=== PATIENT | female | born 1965 | race African-American/Black ===

== ENCOUNTER 2016-04-30 10:59 | Emergency (ER) | payer SELFPAY ==
[~2016-04-30] VITALS: Ht 162.6 cm; Wt 109.0 kg
[~2016-04-30 10:59] MED LIST: AMLO10TA2 PO; CLON0.1T PO; GABA800T PO; HYDR-3535 PO; HYDR25TA5 PO; IBUP-232 PO; METF500T PO; ORPH100T99 PO; ROBA500T PO
[2016-04-30 11:06] VITALS: BP 156/98; PULSE 104; RESP 16; TEMP 100.2; O2SAT 97
[2016-04-30] MEDS ORDERED: SIMV40TA PO (11:20)
[2016-04-30] MEDS ORDERED: PERC5TAB12 PO (11:20)
--- NOTE | 2016-04-30 11:25 | PD ---
HPI Chief Complaint: ENT Complaint Time Seen by Provider: 11:20 Travel History International Travel<30 days: No Contact w/Intl Traveler<30days: No Traveled to known affect area: No History of Present Illness HPI 51 year-old female presents to the emergency room for evaluation of sore throat , chills, bodyaches, nonproductive cough, and congestion for the past week. Patient states it started off as laryngitis and then her symptoms progressed. She took Mucinex last night without any relief in symptoms. Sore throat is her biggest complaint. Worse with speaking and swallowing. States it feels like her throat is swollen. 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 She has not had a flu shot this year. PFSH Past Medical History Hx Anticoagulant Therapy: No Arthritis: Yes Asthma: Yes Cardiovascular Problems: Yes (HTN) High Cholesterol: Yes Diabetes: Yes Patient Takes Glucophage: Yes Diminished Hearing: No GERD: Yes Glaucoma: Yes Genitourinary: Yes (COLLAPSED BLADDER) Herniated Disk: Yes (TWO LOWER BACK, ONE IN NECK) Hypertension: Yes Neurologic: No Respiratory: Yes (ASTHMA) Immunizations Current: Yes Tetanus Vaccination: < 5 Years Influenza Vaccination: No ?: Not LMP: 02/07/16 : 3 Para: 2 Miscarriage: 1 Ovarian Cysts: Yes Dilation and Curettage (D&C): Yes Past Surgical History Section: Yes (X2) Other Surgery: Yes (SPINAL TAP/RIGHT BREAST BIOPSY PIN MARKER IN PLACE scalp lesion excision) Social History Alcohol Use: No Tobacco Use: No Substance Use: No Allergies-Medications (Allergen,Severity, Reaction): Coded Allergies: Labetalol (Verified Allergy, Severe, BREATHING/THROAT SWELLS, 04/30/16) Reported Meds & Prescriptions Reported Meds & Active Scripts Active Ibuprofen 600 Mg Tab 600 Mg PO Q6H PRN Reported Simvastatin 40 Mg Tab 40 Mg PO HS Percocet (Oxycodone-Acetaminophen) 5-325 mg Tab 1 Tab PO Q6H PRN Clonidine (Clonidine HCl) 0.1 Mg Tab 0.1 Mg PO DAILY Hydrochlorothiazide 25 Mg Tab 25 Mg PO DAILY Amlodipine (Amlodipine Besylate) 10 Mg Tab 10 Mg PO DAILY Gabapentin 800 Mg Tab 800 Mg PO TID Metformin (Metformin HCl) 500 Mg Tab 500 Mg PO DAILY With a meal Review of Systems Except as stated in HPI: all other systems reviewed are Neg Physical Exam Narrative GENERAL: Well-nourished, well-developed female in no acute distress. Afebrile. Ambulatory. SKIN: Warm and dry. HEAD: Normocephalic. EYES: No scleral icterus. No injection or drainage. ENT: Mucosa pink and moist. Moderate erythema, edema, and exudates. No uvular edema. No uvular, palatal, or tonsillar deviation. Airway patent. Nasal turbinates appear normal without nasal blood, purulent drainage or septal hematoma. EARS: Bilateral pinnae and external canals appear within normal limits. Bilateral tympanic membranes without erythema, dullness or perforation. NECK: Supple, trachea midline. No JVD or lymphadenopathy. CARDIOVASCULAR: Regular rate and rhythm without murmurs, gallops, or rubs. RESPIRATORY: Breath sounds equal bilaterally. No accessory muscle use. No crackles, rales, wheezes, or rhonchi. Data Data Last Documented VS Vital Signs Date Time Temp Pulse Resp B/P Pulse Ox O2 Delivery O2 Flow Rate FiO2 04/30/16 11:20 20 04/30/16 11:06 100.2 104 156/98 97 Orders Group A Rapid Strep Screen (04/30/16 11:19) Influenzae A/B Antigen (04/30/16 11:19) Strep Culture (Group A) (04/30/16 11:20) MDM Medical Decision Making Medical Screen Exam Complete: Yes Emergency Medical Condition: Yes Medical Record Reviewed: Yes Differential Diagnosis Influenza versus streptococcal pharyngitis versus upper respiratory infection versus bronchitis Narrative Course 51-year-old female presents to the emergency room for evaluation of cough and flu symptoms for the past week. Patient is well-appearing. Temperature is mildly elevated at 100.2. Physical exam reveals moderate erythema, edema, and exudates on the pharynx. Lungs sounds clear and equal bilaterally. No purulent drainage in the nares. Rapid strep and flu are negative. Patient likely has viral upper respiratory infection. Discharged with instructions for [id number] treatments and told to follow up with primary care physician and return to the emergency room for worsening symptoms. She understands and agrees to plan. Of note, she also reports running out of her metformin last week. Patient given a one-time courtesy refill but told to follow up with the primary care physician for long-term management. She understands and agrees to plan. Diagnosis Primary Impression: Upper respiratory infection Qualified Code: J00 - Acute nasopharyngitis Referrals: Primary Care Physician Patient Instructions: General Instructions, Upper Respiratory Infection (ED) Additional Instructions: Rest and drink plenty of fluids. [id number] Chloraseptic spray and salt water washes for sore throat, Continue [id number] medications for symptoms. Take ibuprofen with food as directed, as needed for pain. You will get one-time courtesy refill of metformin. Follow-up with a primary care physician for long-term management of your chronic conditions. Return to the emergency room for worsening symptoms. Disposition: 01 DISCHARGE HOME Condition: Stable Jeni Velazquez Apr 30, 2016 11:25
[2016-04-30] MEDS ORDERED: METF500T PO (11:50)
== END 2016-04-30 11:59 | disposition home or self-care (01) ==
LOC: PHEFT 10:59
DX: J06.9 Acute upper respiratory infection, unspecified (principal); I10 Essential (primary) hypertension; E78.00 Pure hypercholesterolemia, unspecified; E11.9 Type 2 diabetes mellitus without complications; Z79.4 Long term (current) use of insulin
CPT/HCPCS: 87081; 87804; 87880; 99283

== ENCOUNTER 2016-05-31 11:10 | Emergency (ER) | payer SELFPAY ==
[~2016-05-31] VITALS: Ht 170.2 cm; Wt 111.0 kg
[~2016-05-31 11:10] MED LIST changes: -HYDR-3535 PO; -ORPH100T99 PO; +PERC5TAB12 PO; -ROBA500T PO; +SIMV40TA PO
[2016-05-31 11:23] VITALS: BP 149/79; PULSE 84; RESP 16; TEMP 98.8; O2SAT 100
[2016-05-31 11:36] LABS: BLOOD, URINE NEG (NEG); GLUCOSE,URINE NEG (NEG); KETONE, URINE NEG (NEG); NITRITE,URINE NEG (NEG)
[2016-05-31 11:38] LABS: METHOD OF COLLECTION CLEAN CATCH; URINE COLOR YELLOW (YELLW/STRAW)
[2016-05-31 11:44] LABS: BACTERIA, URINE MOD /hpf; COMMENT (UR) CULTURE INDICATED; CULTURE IF INDICATED CULTURE INDICATED; SQUAMOUS EPITHELIAL CELL URINE 0-5 /hpf (0-5); WBC, URINE 0-2 /hpf (0-5)
[2016-05-31] MEDS ORDERED: OXYB5TAB10 PO (11:46)
[2016-05-31] MEDS ORDERED: SODIUM CHLOR 0.9% 1000 ML INJ 1,000 ML IV ONE (12:00)
[2016-05-31] MEDS ORDERED: KETOROLAC TROMETHAMINE 30 MG/ML (IVP) VIAL IV PUSH ONE (12:00)
[2016-05-31 12:06] LABS: BASOPHIL # 0.2 TH/MM3 (0-0.2); BASOPHIL % 3.6 % (0.0-2.0); EOSINOPHIL # 0.1 TH/MM3 (0-0.4); EOSINOPHIL % 1.9 % (0.0-4.0); HEMATOCRIT 37.9 % (35.0-46.0); HEMO FLAGS DIFF FINAL; LYMPH % 28.9 % (9.0-44.0); LYMPHOCYTE # 1.5 TH/MM3 (1.0-4.8); MEAN CORPUSCULAR HGB CONC 32.9 % (32.0-36.0); MONO % 6.6 % (0.0-8.0); PLATELET COUNT 321 TH/MM3 (150-450); RED BLOOD COUNT 4.46 MIL/MM3 (4.00-5.30); RED CELL DISTRIBUTION WIDTH 13.8 % (11.6-17.2); WHITE BLOOD COUNT 5.1 TH/MM3 (4.0-11.0)
--- NOTE | 2016-05-31 12:08 | PD ---
HPI Chief Complaint: Complaint Time Seen by Provider: 11:40 Travel History International Travel<30 days: No Contact w/Intl Traveler<30days: No Traveled to known affect area: No History of Present Illness HPI Patient is a 51-year-old female who comes in complaining of urinary frequency urgency as well as right flank pain. She says this is going on for the past 2 weeks. She says she feels pressure in her bladder when she urinates, but denies burning with urination. She says she has had chills, and hot flashes but has not had any fevers. She says she has had her menstrual period for 2 weeks now. She reports being out of her medications, both her blood pressure as well as her pain medications. She says she missed 2 appointments with her doctors, but has health insurance now and will make those appointments. She denies any chest pain or shortness of breath. She requests refills for her pain medication. PFSH Past Medical History Hx Anticoagulant Therapy: No Arthritis: Yes Asthma: Yes Cardiovascular Problems: Yes (HTN) High Cholesterol: Yes Diabetes: Yes Patient Takes Glucophage: Yes Diminished Hearing: No GERD: Yes Glaucoma: Yes Genitourinary: Yes (COLLAPSED BLADDER) Herniated Disk: Yes (TWO LOWER BACK, ONE IN NECK) Hypertension: Yes Neurologic: No Respiratory: Yes (ASTHMA) Immunizations Current: Yes ?: Not : 3 Para: 2 Miscarriage: 1 Ovarian Cysts: Yes Dilation and Curettage (D&C): Yes Past Surgical History Section: Yes (X2) Other Surgery: Yes (SPINAL TAP/RIGHT BREAST BIOPSY PIN MARKER IN PLACE scalp lesion excision) Social History Alcohol Use: No Tobacco Use: No Substance Use: No Allergies-Medications (Allergen,Severity, Reaction): Coded Allergies: Labetalol (Verified Allergy, Severe, BREATHING/THROAT SWELLS, 05/31/16) Reported Meds & Prescriptions Reported Meds & Active Scripts Active Ibuprofen 600 Mg Tab 600 Mg PO Q6H PRN Reported Ditropan (Oxybutynin Chloride) 5 Mg Tab 5 Mg PO Q12HR Simvastatin 40 Mg Tab 40 Mg PO HS Percocet (Oxycodone-Acetaminophen) 5-325 mg Tab 1 Tab PO Q6H PRN Clonidine (Clonidine HCl) 0.1 Mg Tab 0.1 Mg PO DAILY Hydrochlorothiazide 25 Mg Tab 25 Mg PO DAILY Amlodipine (Amlodipine Besylate) 10 Mg Tab 10 Mg PO DAILY Gabapentin 800 Mg Tab 800 Mg PO TID Metformin (Metformin HCl) 500 Mg Tab 500 Mg PO DAILY With a meal Review of Systems Except as stated in HPI: all other systems reviewed are Neg General / Constitutional: Positive: Chills, No: Fever HENT: No: Headaches, Lightheadedness Cardiovascular: No: Chest Pain or Discomfort Respiratory: No: Shortness of Breath Gastrointestinal: Positive: Nausea, No: Vomiting, Abdominal Pain Genitourinary: Positive: Urgency, Frequency, Flank Pain Skin: No Rash, No Change in Pigmentation Neurologic: No: Weakness, Dizziness Physical Exam Narrative GENERAL: Awake and alert, in no acute distress. SKIN: Warm and dry. HEAD: Atraumatic. Normocephalic. EYES: Pupils equal and round. No scleral icterus. ENT: Mucous membranes pink and moist. NECK: Trachea midline. No JVD. CARDIOVASCULAR: Regular rate and rhythm. No murmur appreciated. RESPIRATORY: No accessory muscle use. Clear to auscultation. Breath sounds equal bilaterally. GASTROINTESTINAL: Abdomen soft, non-tender, nondistended. Mild right CVA tenderness. MUSCULOSKELETAL: No obvious deformities. No clubbing. No cyanosis. No edema. NEUROLOGICAL: Awake and alert. No obvious cranial nerve deficits. Motor grossly within normal limits. Normal speech. PSYCHIATRIC: Appropriate mood and affect; insight and judgment normal. Data Data Last Documented VS Vital Signs Date Time Temp Pulse Resp B/P Pulse Ox O2 Delivery O2 Flow Rate FiO2 05/31/16 11:23 98.8 84 16 149/79 100 Orders Urinalysis - C+S If Indicated (05/31/16 11:13) Urine Culture (05/31/16 11:25) Complete Blood Count With Diff (05/31/16 11:48) Basic Metabolic Panel (Bmp) (05/31/16 11:48) Ed Urine Pregnancytest Poc (05/31/16 11:48) Sodium Chlor 0.9% 1000 Ml Inj (Ns 1000 M (05/31/16 12:00) Ketorolac Inj (Toradol Inj) (05/31/16 12:00) Ct Abd/Pel W/O Iv Contrast (05/31/16 ) Labs Laboratory Tests Test 05/31/16 05/31/16 11:25 11:55 Urine Collection Type CLEAN CATCH Urine Color YELLOW Urine Turbidity CLEAR Urine pH 7.0 Urine Specific [place] 1.021 Urine Protein TRACE mg/dL Urine Glucose (UA) NEG mg/dL Urine Ketones NEG mg/dL Urine Occult Blood NEG Urine Nitrite NEG Urine Bilirubin NEG Urine Leukocyte Esterase NEG Urine WBC 0-2 /hpf Urine Squamous Epithelial 0-5 /hpf Cells Urine Amorphous Sediment FEW Urine Bacteria MOD /hpf Microscopic Urinalysis Comment CULTURE INDICATED Urine Collection Time 1125 White Blood Count 5.1 TH/MM3 Red Blood Count 4.46 MIL/MM3 Hemoglobin 12.5 GM/DL Hematocrit 37.9 % Mean Corpuscular Volume 85.0 FL Mean Corpuscular Hemoglobin 28.0 PG Mean Corpuscular Hemoglobin 32.9 % Concent Red Cell Distribution Width 13.8 % Platelet Count 321 TH/MM3 Mean Platelet Volume 7.6 FL Neutrophils (%) (Auto) 59.0 % Lymphocytes (%) (Auto) 28.9 % Monocytes (%) (Auto) 6.6 % Eosinophils (%) (Auto) 1.9 % Basophils (%) (Auto) 3.6 % Neutrophils # (Auto) 3.0 TH/MM3 Lymphocytes # (Auto) 1.5 TH/MM3 Monocytes # (Auto) 0.3 TH/MM3 Eosinophils # (Auto) 0.1 TH/MM3 Basophils # (Auto) 0.2 TH/MM3 CBC Comment DIFF FINAL Differential Comment Sodium Level 138 MEQ/L Potassium Level 4.6 MEQ/L Chloride Level 102 MEQ/L Carbon Dioxide Level 29.5 MEQ/L Anion Gap 7 MEQ/L Blood Urea Nitrogen 10 MG/DL Creatinine 1.20 MG/DL Estimat Glomerular Filtration 57 ML/MIN Rate Random Glucose 89 MG/DL Calcium Level 9.0 MG/DL [facility] Medical Decision Making Medical Screen Exam Complete: Yes Emergency Medical Condition: Yes Medical Record Reviewed: Yes Differential Diagnosis UTI versus pyelonephritis versus renal stone Narrative Course Patient is a 51-year-old female comes in complaining of urinary urgency and frequency as well as mild right flank pain. Exam shows very mild right CVA tenderness. IV established, labs sent. Labs show creatinine of 1.2 this is only mildly elevated from her baseline of 1.1. Urine is positive for bacteria. CT abdomen and pelvis performed shows no renal stones or kidney abnormalities. There is a small ovarian cyst. Patient knows she has ovarian cysts. Patient given IV fluids, Toradol. She reports feeling better. She is requesting refills of her medications. She says she can see her doctor hopefully next week. I told her I would give her prescriptions for 2 weeks of her blood pressure medicine. I also offered muscle relaxers for her chronic back pain. She will be given a prescription for Macrobid for her bacteriuria. Patient advised follow-up with her doctors. Advised to return to the ED as needed for any worsening symptoms. Patient is comfortable discharge at this time. Diagnosis Primary Impression: UTI (urinary tract infection) Qualified Code: N30.00 - Acute cystitis without hematuria Patient Instructions: General Instructions, Hypertension (ED), Urinary Tract Infection in Women (ED) Additional Instructions: Follow up with your doctors. Avoid taking Ibuprofen if possible as it can affect your kidneys. You can take Tylenol for pain. Take the muscle relaxants as needed for your back pain. Make sure to take all of your antibiotics. Return to the ED as needed for any worsening symptoms. Scripts Cyclobenzaprine (Flexeril)10 Mg Tab10 Mg PO TID #20 TAB Ref 0 Prov:Zo Chang MD 05/31/16 Nitrofurantoin Monohydrate Macrocrystals (Macrobid)100 Mg [id number] Mg PO BID 5 Days Ref 0 Prov:Zo Chang MD 05/31/16 Amlodipine 10 Mg Tab10 Mg PO DAILY 14 Days Ref 0 Prov:Zo Chang MD 05/31/16 Clonidine 0.1 Mg Tab0.1 Mg PO BID 14 Days Ref 0 Prov:Zo Chang MD 05/31/16 Disposition: 01 DISCHARGE HOME Condition: Stable Zo Chang MD May 31, 2016 12:07
[2016-05-31 12:10] LABS: POTASSIUM 4.6 MEQ/L (3.5-5.1)
[2016-05-31 12:13] LABS: BICARBONATE 29.5 MEQ/L (21.0-32.0)
--- NOTE | 2016-05-31 12:35 | RADHPO ---
EXAM DATE/TIME: 05/31/2016 12:14 [facility] COMPARISON: CT ABDOMEN & PELVIS W/O CONTRAST, March 14, 2015, 12:28. INDICATIONS : Right flank pain. Evaluate for calculi. ORAL CONTRAST: No oral contrast ingested. RADIATION DOSE: 25.88 CTDIvol (mGy) MEDICAL HISTORY : Hypertension. Gastroesophageal reflux disease. SURGICAL HISTORY : section. ENCOUNTER: Initial ACUITY: 2 weeks PAIN SCALE: 4/10 LOCATION: Right flank TECHNIQUE: Volumetric scanning of the abdomen and pelvis was performed. Using automated exposure control and ad justment of the mA and/or kV according to patient size, radiation dose was kept as low as reasonably achievable to obtain optimal diagnostic quality images. FINDINGS: LOWER LUNGS: The visualized lower lungs are clear. LIVER: Homogeneous density without lesion. There is no dilation of the biliary tree. No calcified gallston es. SPLEEN: Normal size without lesion. PANCREAS: Within normal limits. KIDNEYS: Normal in size and shape. There is no mass, stone, or hydronephrosis. ADRENAL GLANDS: Within normal limits. VASCULAR: There is no aortic aneurysm. BOWEL/MESENTERY: The stomach, small bowel, and colon demonstrate no acute abnormality. There is no free intraperitone al air or fluid. ABDOMINAL WALL: Within normal limits. RETROPERITONEUM: There is no lymphadenopathy. BLADDER: No wall thickening or mass. REPRODUCTIVE: There is a simple appearing cyst in the left adnexa measuring 3.1 x 2.4 cm and 15 Hounsfield units in density.. INGUINAL: There is no lymphadenopathy or hernia. MUSCULOSKELETAL: Within normal limits for patient age. CONCLUSION: 1. No renal calculi or obstruction. 2. Left ovarian cyst. Pascual Francis MD on May 31, 2016 at 12:29 Board Certified Radiologist. This report was verified electronically.
[2016-05-31] MEDS ORDERED: AMLO10TA2 PO (12:50)
[2016-05-31] MEDS ORDERED: CLON0.1T PO (12:50)
[2016-05-31] MEDS ORDERED: MACR100C2 PO (12:50)
[2016-05-31] MEDS ORDERED: CYCL1TAB29 PO (12:50)
[2016-05-31 13:06] VITALS: BP 152/78
== END 2016-05-31 13:13 | disposition home or self-care (01) ==
LOC: PHED 11:10
DX: N39.0 Urinary tract infection, site not specified (principal); R10.9 Unspecified abdominal pain; R39.15 Urgency of urination; J45.909 Unspecified asthma, uncomplicated; I10 Essential (primary) hypertension; E78.00 Pure hypercholesterolemia, unspecified; E11.9 Type 2 diabetes mellitus without complications; N83.202 Unspecified ovarian cyst, left side
CPT/HCPCS: 74176; 80048; 81001; 84703; 85025; 87086; 96361; 96374; 99284; J1885; J7030

== ENCOUNTER 2016-06-11 13:52 | Emergency (ER) | payer SELFPAY ==
[~2016-06-11] VITALS: Ht 162.6 cm; Wt 109.0 kg
[~2016-06-11 13:52] MED LIST changes: +CYCL1TAB29 PO; +MACR100C2 PO; +OXYB5TAB10 PO
[2016-06-11 13:58] VITALS: BP 168/111; PULSE 79; RESP 16; TEMP 98.6; O2SAT 99
[2016-06-11] MEDS ORDERED: OXYC1TAB35 PO (14:09)
[2016-06-11] MEDS ORDERED: BACL10TA PO (14:09)
--- NOTE | 2016-06-11 14:36 | PD ---
HPI Chief Complaint: Musculoskeletal Complaint Time Seen by Provider: 14:36 Travel History International Travel<30 days: No Contact w/Intl Traveler<30days: No Traveled to known affect area: No History of Present Illness HPI 51-year-old Afro[place] female coming in with chronic ongoing lower back pain exacerbated by recent job, where she standing for 12 hours a day 6 days a week. Patient states her pain is a 6/10, and worse with prolonged standing. Patient states she is currently without insurance in between primary care physicians. He is requesting something for her back pain and muscle spasms as well as something for her hypertension. Patient states she normally takes amlodipine 10 mg daily as well as clonidine 0.1 mg twice a day. Patient also states she was taking gabapentin 800 mg 3 times a day and ibuprofen. Patient also states she took a muscle relaxant in March which worked very well for her. She denies any other acute issues at this time. She is allergic to labetalol. PFSH Past Medical History Hx Anticoagulant Therapy: No Arthritis: Yes Asthma: Yes Cardiovascular Problems: Yes (HTN) High Cholesterol: Yes Diabetes: Yes Patient Takes Glucophage: No Diminished Hearing: No GERD: Yes Glaucoma: Yes Genitourinary: Yes (COLLAPSED BLADDER) Herniated Disk: Yes (TWO LOWER BACK, ONE IN NECK) Hypertension: Yes Neurologic: No Respiratory: Yes (ASTHMA) Immunizations Current: Yes ?: Not : 3 Para: 2 Miscarriage: 1 Ovarian Cysts: Yes Dilation and Curettage (D&C): Yes Past Surgical History Section: Yes (X2) Other Surgery: Yes (SPINAL TAP/RIGHT BREAST BIOPSY PIN MARKER IN PLACE scalp lesion excision) Social History Alcohol Use: No Tobacco Use: No Substance Use: No Allergies-Medications (Allergen,Severity, Reaction): Coded Allergies: Labetalol (Verified Allergy, Severe, BREATHING/THROAT SWELLS, 06/11/16) Reported Meds & Prescriptions Reported Meds & Active Scripts Active Orphenadrine CR (Orphenadrine Citrate) 100 Mg Tab 100 Mg PO Q12HR Ibuprofen 600 Mg Tab 600 Mg PO Q6H PRN Clonidine (Clonidine HCl) 0.1 Mg Tab 0.1 Mg PO BID Amlodipine (Amlodipine Besylate) 10 Mg Tab 10 Mg PO DAILY Gabapentin 800 Mg Tab 800 Mg PO TID Ibuprofen 600 Mg Tab 600 Mg PO Q6H PRN Reported Baclofen 10 Mg Tab 10 Mg PO TID Oxycodone-Acetaminophen 7.5-325 mg Tab 1 Tab PO Q4H PRN Clonidine (Clonidine HCl) 0.1 Mg Tab 0.1 Mg PO DAILY Amlodipine (Amlodipine Besylate) 10 Mg Tab 10 Mg PO DAILY Gabapentin 800 Mg Tab 800 Mg PO TID Review of Systems Except as stated in HPI: all other systems reviewed are Neg General / Constitutional: No: Fever Eyes: No: Visual changes HENT: No: Headaches Cardiovascular: No: Chest Pain or Discomfort Respiratory: No: Shortness of Breath Gastrointestinal: No: Abdominal Pain Genitourinary: No: Dysuria Musculoskeletal: Positive: Myalgias, Arthralgias, Pain (see history present illness.) Skin: No Rash Neurologic: No: Weakness Psychiatric: No: Depression Endocrine: No: Polydipsia Hematologic/Lymphatic: No: Easy Bruising Physical Exam Narrative GENERAL: Patient appears in no acute distress. SKIN: Warm and dry. Normal color. Normal turgor. No rash. HEAD: Atraumatic. Normocephalic. EYES: Pupils equal and round. No scleral icterus. No injection or drainage. ENT: No nasal bleeding or discharge. Mucous membranes pink and moist. NECK: Trachea midline. No JVD. CARDIOVASCULAR: Regular rate and rhythm. RESPIRATORY: No accessory muscle use. Clear to auscultation. Breath sounds equal bilaterally. GASTROINTESTINAL: Abdomen soft, non-tender, nondistended. Hepatic and splenic margins not palpable. MUSCULOSKELETAL: Extremities without clubbing, cyanosis, or edema. No obvious deformities. Nonspecific tenderness along the lumbar spine bilaterally without straight leg raise pain bilaterally. NEUROLOGICAL: Awake and alert. No obvious cranial nerve deficits. Motor grossly within normal limits. Five out of 5 muscle strength in the arms and legs. Normal speech. PSYCHIATRIC: Appropriate mood and affect; insight and judgment normal. Data Data Last Documented VS Vital Signs Date Time Temp Pulse Resp B/P Pulse Ox O2 Delivery O2 Flow Rate FiO2 06/11/16 13:58 98.6 79 16 168/111 99 MDM Medical Decision Making Medical Screen Exam Complete: Yes Emergency Medical Condition: Yes Differential Diagnosis Chronic low back pain exacerbation. Hypertension. Need for refills. Narrative Course Patient is medically stable at time of exam. Patient is given a refill of her gabapentin 800 mg 3 times a day #90. Patient is given a refill of her amlodipine 10 mg daily #30. Patient is given refill of clonidine 0.1 mg twice a day #60. Patient is given ibuprofen 600 mg 4 times a day #40. Patient is given Norflex 100 mg twice a day #20. Patient is to follow with her primary care physician as discussed. Work note is given for today. Diagnosis Primary Impression: Back pain Qualified Code: M54.5 - Chronic bilateral low back pain without sciatica Additional Impression: Essential hypertension Referrals: Primary Care Physician Patient Instructions: General Instructions Departure Forms: Work Release Enter return to work date: Jun 13, 2016 Additional Instructions: Patient is given a refill of her gabapentin 800 mg 3 times a day #90. Patient is given a refill of her amlodipine 10 mg daily #30. Patient is given refill of clonidine 0.1 mg twice a day #60. Patient is given ibuprofen 600 mg 4 times a day #40. Patient is given Norflex 100 mg twice a day #20. Patient is to follow with her primary care physician as discussed. Work note is given for today. Med/Other Pt SpecificInfo: Prescription(s) given Scripts Orphenadrine ER 12 HR (Orphenadrine CR)100 Mg [id number] Mg PO Q12HR #20 TAB Prov:Artis Medellin MD 06/11/16 Ibuprofen 600 Mg [id number] Mg PO Q6H PRN (Pain/Inflammation) #40 TAB Prov:Artis Medellin MD 06/11/16 Clonidine 0.1 Mg Tab0.1 Mg PO BID #60 TAB Ref 0 Prov:Artis Medellin MD 06/11/16 Amlodipine 10 Mg Tab10 Mg PO DAILY #30 TAB Ref 0 Prov:Artis Medellin MD 06/11/16 Gabapentin 800 Mg [id number] Mg PO TID #90 TAB Ref 0 Prov:Artis Medellin MD 06/11/16 Disposition: 01 DISCHARGE HOME Condition: Stable Aki Najera Jun 11, 2016 14:36
[2016-06-11] MEDS ORDERED: ORPH100T99 PO (15:05)
[2016-06-11] MEDS ORDERED: AMLO10TA2 PO (15:05)
[2016-06-11] MEDS ORDERED: CLON0.1T PO (15:05)
[2016-06-11] MEDS ORDERED: IBUP-232 PO (15:05)
[2016-06-11] MEDS ORDERED: GABA800T PO (15:05)
== END 2016-06-11 15:19 | disposition home or self-care (01) ==
LOC: PHEFT 13:52
DX: M54.5 Low back pain (principal); G89.29 Other chronic pain; I10 Essential (primary) hypertension
CPT/HCPCS: 99283

== ENCOUNTER 2016-07-15 15:12 | Emergency (ER) | payer OTHER ==
[~2016-07-15] VITALS: Ht 162.6 cm; Wt 113.0 kg
[~2016-07-15 15:12] MED LIST changes: +BACL10TA PO; -CYCL1TAB29 PO; -HYDR25TA5 PO; -MACR100C2 PO; -METF500T PO; +ORPH100T99 PO; -OXYB5TAB10 PO; +OXYC1TAB35 PO; -PERC5TAB12 PO; -SIMV40TA PO
[2016-07-15 15:19] VITALS: BP 140/87; PULSE 68; RESP 16; TEMP 97.8; O2SAT 100
[2016-07-15] MEDS ORDERED: HYDR25TA5 PO (15:36)
[2016-07-15] MEDS ORDERED: METF500T PO (15:36)
[2016-07-15] MEDS ORDERED: SODIUM CHLORIDE 0.9% FLUSH 10 ML FLUSH IVF PRN (15:45)
--- NOTE | 2016-07-15 16:01 | PD ---
HPI Chief Complaint: Numbness/Tingling Time Seen by Provider: 15:27 Travel History International Travel<30 days: No Contact w/Intl Traveler<30days: No Traveled to known affect area: No History of Present Illness HPI 51-year-old female here with complaint of numbness and tingling. Patient states that over the course the last 2 weeks she has had intermittent swelling and warmth type feeling in the right foot and hand. This is associated with paresthesias, as though she fell asleep on her arm and wakes up with pins and needle sensation. Symptoms come and go and she hasn't found any provocative or relieving factors. The patient is primarily concerned that she is having a stroke. She does not have history of this. Patient also concerned about renal failure, states that previously she was told that her kidneys do not function well. Patient states that previously she was diagnosed with carpal tunnel and sometimes if she shakes her right hand the symptoms seemed to improve. PFSH Past Medical History Hx Anticoagulant Therapy: No Arthritis: Yes Asthma: Yes Cardiovascular Problems: Yes (htn on meds) High Cholesterol: Yes Diabetes: Yes Patient Takes Glucophage: Yes Diminished Hearing: No GERD: Yes Glaucoma: Yes Genitourinary: Yes (COLLAPSED BLADDER) Herniated Disk: Yes (TWO LOWER BACK, ONE IN NECK) Hypertension: Yes Neurologic: No Respiratory: Yes (asthma) Immunizations Current: Yes ?: Not : 3 Para: 2 Miscarriage: 1 Ovarian Cysts: Yes Dilation and Curettage (D&C): Yes Past Surgical History Section: Yes (X2) Other Surgery: Yes (SPINAL TAP/RIGHT BREAST BIOPSY PIN MARKER IN PLACE scalp lesion excision) Social History Alcohol Use: No Tobacco Use: No Substance Use: No Allergies-Medications (Allergen,Severity, Reaction): Coded Allergies: Labetalol (Verified Allergy, Severe, BREATHING/THROAT SWELLS, 07/15/16) Reported Meds & Prescriptions Reported Meds & Active Scripts Active Ibuprofen 600 Mg Tab 600 Mg PO Q6H PRN Reported Metformin (Metformin HCl) 500 Mg Tab 500 Mg PO BIDPC With meals Hydrochlorothiazide 25 Mg Tab 25 Mg PO DAILY Oxycodone-Acetaminophen 7.5-325 mg Tab 1 Tab PO Q4H PRN Clonidine (Clonidine HCl) 0.1 Mg Tab 0.1 Mg PO BID Amlodipine (Amlodipine Besylate) 10 Mg Tab 10 Mg PO DAILY Gabapentin 800 Mg Tab 800 Mg PO TID Review of Systems Except as stated in HPI: all other systems reviewed are Neg Physical Exam Narrative GENERAL: Well-appearing female in no acute distress SKIN: Focused skin assessment warm/dry. HEAD: Atraumatic. Normocephalic. EYES: Pupils equal and round. No scleral icterus. No injection or drainage. ENT: No nasal bleeding or discharge. Mucous membranes pink and moist. NECK: Trachea midline. No JVD. CARDIOVASCULAR: Regular rate and rhythm. No murmur appreciated. RESPIRATORY: No accessory muscle use. Clear to auscultation. Breath sounds equal bilaterally. GASTROINTESTINAL: Obese MUSCULOSKELETAL: I do not appreciate any edema, wounds to the extremities. There is no laterality to patient's exam. She does not have any objective paresthesias to the hand or feet and has 5 out of 5 strength in the bilateral upper and lower extremities. Patient complains of subjective paresthesias primarily in the first through third digits of the right hand. NEUROLOGICAL: Awake and alert. No obvious cranial nerve deficits. Motor grossly within normal limits. Normal speech. PSYCHIATRIC: Appropriate mood and affect; insight and judgment normal. Data Data Last Documented VS Vital Signs Date Time Temp Pulse Resp B/P Pulse Ox O2 Delivery O2 Flow Rate FiO2 07/15/16 16:30 68 18 142/87 99 Room Air 07/15/16 15:19 97.8 Orders Complete Blood Count With Diff (07/15/16 15:36) Basic Metabolic Panel (Bmp) (07/15/16 15:36) Iv Access Insert/Monitor (07/15/16 15:36) Sodium Chloride 0.9% Flush (Ns Flush) (07/15/16 15:45) Labs Laboratory Tests Test 07/15/16 16:00 White Blood Count 4.3 TH/MM3 Red Blood Count 4.08 MIL/MM3 Hemoglobin 11.2 GM/DL Hematocrit 34.8 % Mean Corpuscular Volume 85.4 FL Mean Corpuscular Hemoglobin 27.5 PG Mean Corpuscular Hemoglobin 32.2 % Concent Red Cell Distribution Width 14.3 % Platelet Count 342 TH/MM3 Mean Platelet Volume 7.5 FL Neutrophils (%) (Auto) 58.3 % Lymphocytes (%) (Auto) 33.3 % Monocytes (%) (Auto) 5.5 % Eosinophils (%) (Auto) 2.5 % Basophils (%) (Auto) 0.4 % Neutrophils # (Auto) 2.5 TH/MM3 Lymphocytes # (Auto) 1.4 TH/MM3 Monocytes # (Auto) 0.2 TH/MM3 Eosinophils # (Auto) 0.1 TH/MM3 Basophils # (Auto) 0.0 TH/MM3 CBC Comment DIFF FINAL Differential Comment Sodium Level 143 MEQ/L Potassium Level 4.1 MEQ/L Chloride Level 108 MEQ/L Carbon Dioxide Level 29.0 MEQ/L Anion Gap 6 MEQ/L Blood Urea Nitrogen 19 MG/DL Creatinine 1.30 MG/DL Estimat Glomerular Filtration 52 ML/MIN Rate Random Glucose 83 MG/DL Calcium Level 8.9 MG/DL MDM Medical Decision Making Medical Screen Exam Complete: Yes Emergency Medical Condition: Yes Medical Record Reviewed: Yes Differential Diagnosis 51-year-old female here with complaint of intermittent swelling in paresthesias to the right hand and foot. No swelling appreciated on exam. Patient has subjective paresthesias but I do not appreciate any objective paresthesias on exam. Her symptoms have been intermittent, and are not consistent with CVA. Given her concern for renal dysfunction patient requested laboratory testing which I don't think Reasonable Though It Certainly Not Going to Cause Her Unilateral Neurologic Symptoms. My Suspicion Is That Her Hand Paresthesias Are Due To History of Carpal Tunnel. Narrative Course Patient placed on monitor, IV established and blood obtained. CBC and BMP obtained and are pending at time of dictation. Patient signed out to oncoming provider waiting results for hopeful disposition home. Patient signed out to oncoming provider waiting results. Milena Landry MD Jul 15, 2016 16:01
[2016-07-15 16:09] LABS: AUTOMATED NEUTROPHIL # 2.5 TH/MM3 (1.8-7.7); BASOPHIL % 0.4 % (0.0-2.0); EOSINOPHIL # 0.1 TH/MM3 (0-0.4); EOSINOPHIL % 2.5 % (0.0-4.0); HEMATOCRIT 34.8 % (35.0-46.0); HEMO FLAGS DIFF FINAL; LYMPH % 33.3 % (9.0-44.0); LYMPHOCYTE # 1.4 TH/MM3 (1.0-4.8); MEAN CELL VOLUME 85.4 FL (80.0-100.0); MEAN CORPUSCULAR HEMOGLOBIN 27.5 PG (27.0-34.0); MEAN CORPUSCULAR HGB CONC 32.2 % (32.0-36.0); MONO % 5.5 % (0.0-8.0); NEUT % 58.3 % (16.0-70.0); PLATELET COUNT 342 TH/MM3 (150-450); RED BLOOD COUNT 4.08 MIL/MM3 (4.00-5.30); RED CELL DISTRIBUTION WIDTH 14.3 % (11.6-17.2); WHITE BLOOD COUNT 4.3 TH/MM3 (4.0-11.0)
[2016-07-15 16:23] LABS: POTASSIUM 4.1 MEQ/L (3.5-5.1)
[2016-07-15 16:30] VITALS: BP 142/87; PULSE 68; RESP 18; O2SAT 99
--- NOTE | 2016-07-15 17:04 | PD ---
Physical Exam Date Seen by Provider: Jul 15, 2016 Time Seen by Provider: 16:59 Narrative This 51-year-old female had presented with complaint of paresthesias in her right hand and right leg. She says is sometimes she wakes up and has to shake her hand because it has not been painful. She was diagnosed with carpal tunnel at one time. Ab work had been done to assess her kidney function and her creatinine is 1.3. She is stable for discharge. She has an appointment with Dr. Dueñas on Monday. She says that she been working 12 hour shifts 6 days a week and is exhausted. I will put her off work for 2 days Data Data Last Documented VS Vital Signs Date Time Temp Pulse Resp B/P Pulse Ox O2 Delivery O2 Flow Rate FiO2 07/15/16 16:30 68 18 142/87 99 Room Air 07/15/16 15:19 97.8 Orders Complete Blood Count With Diff (07/15/16 15:36) Basic Metabolic Panel (Bmp) (07/15/16 15:36) Iv Access Insert/Monitor (07/15/16 15:36) Sodium Chloride 0.9% Flush (Ns Flush) (07/15/16 15:45) Labs Laboratory Tests Test 07/15/16 16:00 White Blood Count 4.3 TH/MM3 Red Blood Count 4.08 MIL/MM3 Hemoglobin 11.2 GM/DL Hematocrit 34.8 % Mean Corpuscular Volume 85.4 FL Mean Corpuscular Hemoglobin 27.5 PG Mean Corpuscular Hemoglobin 32.2 % Concent Red Cell Distribution Width 14.3 % Platelet Count 342 TH/MM3 Mean Platelet Volume 7.5 FL Neutrophils (%) (Auto) 58.3 % Lymphocytes (%) (Auto) 33.3 % Monocytes (%) (Auto) 5.5 % Eosinophils (%) (Auto) 2.5 % Basophils (%) (Auto) 0.4 % Neutrophils # (Auto) 2.5 TH/MM3 Lymphocytes # (Auto) 1.4 TH/MM3 Monocytes # (Auto) 0.2 TH/MM3 Eosinophils # (Auto) 0.1 TH/MM3 Basophils # (Auto) 0.0 TH/MM3 CBC Comment DIFF FINAL Differential Comment Sodium Level 143 MEQ/L Potassium Level 4.1 MEQ/L Chloride Level 108 MEQ/L Carbon Dioxide Level 29.0 MEQ/L Anion Gap 6 MEQ/L Blood Urea Nitrogen 19 MG/DL Creatinine 1.30 MG/DL Estimat Glomerular Filtration 52 ML/MIN Rate Random Glucose 83 MG/DL Calcium Level 8.9 MG/DL [facility] Medical Record Reviewed: No Supervised Visit with MAKENNA: No Differential Diagnosis Differential includes neuropathy, carpal tunnel Narrative Course Patient will be released. She is to follow-up with Diagnosis Primary Impression: Paresthesias Departure Forms: Tests/Procedures, Work Release Enter return to work date: Jul 18, 2016 Additional Instruction: Follow-up with Dr. Dueñas Disposition: 01 DISCHARGE HOME Condition: Stable Juan Pablo Kuo MD Jul 15, 2016 17:04
== END 2016-07-15 17:19 | disposition home or self-care (01) ==
LOC: PHED 15:12
DX: R20.0 Anesthesia of skin (principal); E78.00 Pure hypercholesterolemia, unspecified; I10 Essential (primary) hypertension; Z79.4 Long term (current) use of insulin
CPT/HCPCS: 80048; 85025; 99284

== ENCOUNTER 2016-08-15 06:54 | Emergency (ER) | payer OTHER ==
[~2016-08-15] VITALS: Ht 162.6 cm; Wt 114.6 kg
[~2016-08-15 06:54] MED LIST changes: -BACL10TA PO; +HYDR25TA5 PO; +METF500T PO; -ORPH100T99 PO
[2016-08-15 07:05] VITALS: BP 177/114; PULSE 60; RESP 16; TEMP 98.7; O2SAT 99
[2016-08-15] MEDS ORDERED: ORPH100T99 PO (07:49)
[2016-08-15] MEDS ORDERED: PERC7.5T13 PO (07:49)
[2016-08-15 08:10] VITALS: BP 164/95
--- NOTE | 2016-08-15 09:01 | PD ---
HPI Chief Complaint: Skin Problem Time Seen by Provider: 08:07 Travel History International Travel<30 days: No Contact w/Intl Traveler<30days: No Traveled to known affect area: No History of Present Illness HPI 51-year-old female states she's been having swelling and tingling to her bilateral fingers after exposure to acetone on the job. She states that she had this first started in May and over the past 3 weeks it has increased in severity. She denies any fever, difficulty breathing or other concurrent complaints. She states that she works 6 days a week and can only get off on Monday that today she had a pain management appointment this afternoon so she wanted to get checked out this morning. She states she has a primary care physician but has difficulty getting there with her job. PFSH Past Medical History Hx Anticoagulant Therapy: No Arthritis: Yes Asthma: Yes Cardiovascular Problems: Yes (htn on meds) High Cholesterol: Yes Diabetes: Yes Patient Takes Glucophage: No Diminished Hearing: No GERD: Yes Glaucoma: Yes Genitourinary: Yes (COLLAPSED BLADDER) Herniated Disk: Yes (TWO LOWER BACK, ONE IN NECK) Hypertension: Yes Neurologic: No Respiratory: Yes (asthma) Immunizations Current: Yes Influenza Vaccination: No ?: Not : 3 Para: 2 Miscarriage: 1 Ovarian Cysts: Yes Dilation and Curettage (D&C): Yes Past Surgical History Section: Yes (X2) Other Surgery: Yes (SPINAL TAP/RIGHT BREAST BIOPSY PIN MARKER IN PLACE scalp lesion excision) Social History Alcohol Use: No Tobacco Use: No Substance Use: No Allergies-Medications (Allergen,Severity, Reaction): Coded Allergies: Labetalol (Verified Allergy, Severe, BREATHING/THROAT SWELLS, 08/15/16) Reported Meds & Prescriptions Reported Meds & Active Scripts Active Reported Percocet (Oxycodone-Acetaminophen) 7.5-325 mg Tab 1 Tab PO DIRECTED PRN Metformin (Metformin HCl) 500 Mg Tab 500 Mg PO BIDPC With meals Hydrochlorothiazide 25 Mg Tab 25 Mg PO DAILY Clonidine (Clonidine HCl) 0.1 Mg Tab 0.1 Mg PO BID Amlodipine (Amlodipine Besylate) 10 Mg Tab 10 Mg PO DAILY Gabapentin 800 Mg Tab 800 Mg PO TID Orphenadrine CR (Orphenadrine Citrate) 100 Mg Tab 100 Mg PO Q12HR Review of Systems Except as stated in HPI: all other systems reviewed are Neg Physical Exam Narrative GENERAL: Well-nourished, well-developed patient. Well-appearing SKIN: Mild swelling diffusely noted to fingers without overlying erythema or induration. HEAD: Normocephalic and atraumatic. EYES: No injection or drainage. ENT: No nasal drainage noted. NECK: Supple, trachea midline. CARDIOVASCULAR: Regular rate and rhythm RESPIRATORY: No increased effort. No accessory muscle use. EXTREMITIES: Pain with range of motion of fingers diffusely, no pain with other joints , neurovascularly intact, no lacerations over, compartments soft. Good cap refill NEUROLOGICAL: Awake and alert. Motor and sensory grossly within normal limits. Normal speech. Data Data Last Documented VS Vital Signs Date Time Temp Pulse Resp B/P Pulse Ox O2 Delivery O2 Flow Rate FiO2 08/15/16 08:10 164/95 08/15/16 07:05 98.7 60 16 99 MDM Medical Decision Making Medical Screen Exam Complete: Yes Emergency Medical Condition: Yes Medical Record Reviewed: Yes (past history confirmed) Differential Diagnosis Chemical exposure, osteoarthritis, rheumatoid arthritis..... Narrative Course Patient without signs of infection on exam, patient without systemic signs of allergic reaction, patient with multiple month history of swelling to fingers with tingling sensation after use of acetone with her job. I advised her to follow with her primary care physician closely as there is not emergent indication for testing here in the ER today. Patient was wanting to have blood work checked I told her this was not emergent and that should be done through her primary. while I was with another patient patient elected to leave on her own before discharge instructions or talking with me further. Diagnosis Primary Impression: Pain in finger of both hands Additional Impression: Finger joint swelling Qualified Code: M25.449 - Finger joint swelling, unspecified laterality Patient Instructions: General Instructions Departure Forms: Tests/Procedures Additional Instructions: Follow with primary today, return as needed, Tylenol as needed Disposition: 01 DISCHARGE HOME (without discharge instructions) Condition: Stable Yany Boyce MD August 15, 2016 09:00
== END 2016-08-15 09:06 | disposition home or self-care (01) ==
LOC: PHED 06:54 → PHEFT 09:06
DX: M79.645 Pain in left finger(s) (principal); M79.644 Pain in right finger(s); M25.442 Effusion, left hand; M25.441 Effusion, right hand; R20.2 Paresthesia of skin
CPT/HCPCS: 99283

== ENCOUNTER 2016-08-20 07:46 | Emergency (ER) | payer OTHER ==
[~2016-08-20] VITALS: Ht 162.6 cm; Wt 112.9 kg
[~2016-08-20 07:46] MED LIST changes: -IBUP-232 PO; +ORPH100T99 PO; -OXYC1TAB35 PO; +PERC7.5T13 PO
[2016-08-20 07:54] VITALS: BP 172/109; PULSE 74; RESP 16; TEMP 98.2; O2SAT 100
[2016-08-20] MEDS ORDERED: PRED10 PO (08:38)
--- NOTE | 2016-08-20 08:39 | PD ---
HPI Chief Complaint: ENT Complaint Time Seen by Provider: 08:33 Travel History International Travel<30 days: No Contact w/Intl Traveler<30days: No Traveled to known affect area: No History of Present Illness HPI Patient presents with complaints of full-body swelling area denies any shortness of breath or significant pain. 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 States she also inhales it daily. Denies nausea vomiting diarrhea or fever. Denies any chest pain shortness of breath urinary or bowel symptoms. PFSH Past Medical History Hx Anticoagulant Therapy: No Arthritis: Yes Asthma: Yes Cardiovascular Problems: Yes (htn on meds) High Cholesterol: Yes Diabetes: Yes Patient Takes Glucophage: Yes Diminished Hearing: No GERD: Yes Glaucoma: Yes Genitourinary: Yes (COLLAPSED BLADDER) Herniated Disk: Yes (TWO LOWER BACK, ONE IN NECK) Hypertension: Yes Musculoskeletal: Yes (sees pain management) Neurologic: No Respiratory: Yes (asthma) Immunizations Current: Yes ?: Not : 3 Para: 2 Miscarriage: 1 Ovarian Cysts: Yes Dilation and Curettage (D&C): Yes Past Surgical History Section: Yes (X2) Other Surgery: Yes (RIGHT BREAST BIOPSY PIN MARKER IN PLACE scalp lesion excision) Social History Alcohol Use: No Tobacco Use: No Substance Use: No Allergies-Medications (Allergen,Severity, Reaction): Coded Allergies: Labetalol (Verified Allergy, Severe, BREATHING/THROAT SWELLS, 08/20/16) Reported Meds & Prescriptions Reported Meds & Active Scripts Active Reported Orphenadrine CR (Orphenadrine Citrate) 100 Mg Tab 100 Mg PO Q12HR Percocet (Oxycodone-Acetaminophen) 7.5-325 mg Tab 1 Tab PO DIRECTED PRN Metformin (Metformin HCl) 500 Mg Tab 500 Mg PO BIDPC With meals Hydrochlorothiazide 25 Mg Tab 25 Mg PO DAILY Clonidine (Clonidine HCl) 0.1 Mg Tab 0.1 Mg PO BID Amlodipine (Amlodipine Besylate) 10 Mg Tab 10 Mg PO DAILY Gabapentin 800 Mg Tab 800 Mg PO TID Review of Systems General / Constitutional: No: Fever Eyes: No: Visual changes HENT: No: Headaches Cardiovascular: No: Chest Pain or Discomfort Respiratory: No: Shortness of Breath Gastrointestinal: No: Abdominal Pain Genitourinary: No: Dysuria Musculoskeletal: No: Pain Skin: No Rash Neurologic: No: Weakness Psychiatric: No: Depression Endocrine: No: Polydipsia Hematologic/Lymphatic: No: Easy Bruising Physical Exam Narrative GENERAL: Well-nourished, well-developed patient. SKIN: Focused skin assessment warm/dry. HEAD: Normocephalic. EYES: No scleral icterus. No injection or drainage. NECK: Supple, trachea midline. No JVD or lymphadenopathy. CARDIOVASCULAR: Regular rate and rhythm without murmurs, gallops, or rubs. RESPIRATORY: Breath sounds equal bilaterally. No accessory muscle use. GASTROINTESTINAL: Abdomen soft, non-tender, nondistended. MUSCULOSKELETAL: No cyanosis, or edema. BACK: Nontender without obvious deformity. No CVA tenderness. Examination of the hands does reveal some type of exposure and mild swelling, skin appears dry No significant notable observations Data Data Last Documented VS Vital Signs Date Time Temp Pulse Resp B/P Pulse Ox O2 Delivery O2 Flow Rate FiO2 08/20/16 07:54 98.2 74 16 172/109 100 MDM Medical Decision Making Medical Screen Exam Complete: Yes Emergency Medical Condition: Yes Differential Diagnosis Chemical exposure, allergic reaction, allergies Narrative Course Assessment and plan discussed with patient at bedside Diagnosis Primary Impression: Chemical exposure Patient Instructions: General Instructions Additional Instructions: Encouraged Benadryl and Zantac. Steroid taper as prescribed. Follow-up with PCP. Please provide work note for one to 2 days Med/Other Pt SpecificInfo: Prescription(s) given Scripts Prednisone 10 Mg Tab10 Mg PO DAILY #20 TAB Ref 0 Prov:Richmond Hill MD 08/20/16 Disposition: 01 DISCHARGE HOME Condition: Good Richmond Hill MD August 20, 2016 08:39
[2016-08-20 08:50] VITALS: BP 139/87
== END 2016-08-20 09:03 | disposition home or self-care (01) ==
LOC: PHED 07:46
DX: T52.4X1A Toxic effect of ketones, accidental (unintentional), initial encounter (principal); E78.00 Pure hypercholesterolemia, unspecified; E11.9 Type 2 diabetes mellitus without complications; I10 Essential (primary) hypertension; Z57.5 Occupational exposure to toxic agents in other industries; Y92.9 Unspecified place or not applicable; Y99.0 Civilian activity done for income or pay
CPT/HCPCS: 99283

== ENCOUNTER 2017-02-10 19:17 | Emergency (ER) | payer SELFPAY ==
[~2017-02-10] VITALS: Ht 162.6 cm; Wt 114.8 kg
[~2017-02-10 19:17] MED LIST changes: +ORPH100T2 PO; -ORPH100T99 PO; +PRED10 PO
[2017-02-10 19:28] VITALS: BP 155/85; PULSE 76; RESP 18; TEMP 98.3; O2SAT 99
[2017-02-10] MEDS ORDERED: ROBA500T PO (19:56)
--- NOTE | 2017-02-10 19:56 | PD ---
HPI Chief Complaint: Complaint Time Seen by Provider: 19:56 Travel History International Travel<30 days: No Contact w/Intl Traveler<30days: No Traveled to known affect area: No History of Present Illness HPI Patient is a 51 year old female who presents to the ER with c/o of dysuria, urinary urgency and frequency for the past 5 days. Reports that she does have history of bladder prolapse and did take ditropan in the past as she has had this issue for a while. Reports that she has since stopped taking ditropan as she stopped seeing the urologist for her bladder prolapse. Denies fever/ chills. Denies abdominal pain. Denies n/v. Reports increased pressure to her lower abdomen. Denies vaginal bleeding or discharge PFSH Past Medical History Hx Anticoagulant Therapy: No Arthritis: Yes Asthma: Yes Cardiovascular Problems: Yes (htn on meds) High Cholesterol: Yes Diabetes: Yes Diminished Hearing: No GERD: Yes Glaucoma: Yes Genitourinary: Yes (COLLAPSED BLADDER) Herniated Disk: Yes (TWO LOWER BACK, ONE IN NECK) Hypertension: Yes Musculoskeletal: Yes (sees pain management) Neurologic: No Respiratory: Yes (asthma) Immunizations Current: Yes : 3 Para: 2 Miscarriage: 1 Ovarian Cysts: Yes Dilation and Curettage (D&C): Yes Past Surgical History Section: Yes (X2) Other Surgery: Yes (RIGHT BREAST BIOPSY PIN MARKER IN PLACE scalp lesion excision) Social History Alcohol Use: No Tobacco Use: No Substance Use: No Allergies-Medications (Allergen,Severity, Reaction): Coded Allergies: labetalol (Unverified Allergy, Severe, BREATHING/THROAT SWELLS, 11/29/16) Reported Meds & Prescriptions Reported Meds & Active Scripts Active Pyridium (Phenazopyridine HCl) 100 Mg Tab 100 Mg PO Q8H PRN 3 Days Macrobid (Nitrofurantoin Monoh/Nitrofur Macro) 100 Mg Cap 100 Mg PO BID 10 Days Reported Robaxin (Methocarbamol) 500 Mg Tab 500 Mg PO BID Percocet (Oxycodone-Acetaminophen) 7.5-325 mg Tab 1 Tab PO DIRECTED PRN Metformin (Metformin HCl) 500 Mg Tab 500 Mg PO BIDPC With meals Hydrochlorothiazide 25 Mg Tab 25 Mg PO DAILY Clonidine (Clonidine HCl) 0.1 Mg Tab 0.1 Mg PO BID Amlodipine (Amlodipine Besylate) 10 Mg Tab 10 Mg PO DAILY Gabapentin 800 Mg Tab 800 Mg PO TID Review of Systems General / Constitutional: No: Fever Eyes: No: Visual changes HENT: No: Headaches Cardiovascular: No: Chest Pain or Discomfort Respiratory: No: Shortness of Breath Gastrointestinal: No: Abdominal Pain Genitourinary: Positive: Urgency, Frequency, Dysuria, Hesitancy, No: Nocturia, Hematuria, Pelvic Pain, Flank Pain Musculoskeletal: No: Pain Skin: No Rash Neurologic: No: Weakness Psychiatric: No: Depression Endocrine: No: Polydipsia Hematologic/Lymphatic: No: Easy Bruising Physical Exam Narrative GENERAL: Well-nourished, well-developed patient. SKIN: Focused skin assessment warm/dry. HEAD: Normocephalic. EYES: No scleral icterus. No injection or drainage. NECK: Supple, trachea midline. No JVD or lymphadenopathy. CARDIOVASCULAR: Regular rate and rhythm without murmurs, gallops, or rubs. RESPIRATORY: Breath sounds equal bilaterally. No accessory muscle use. GASTROINTESTINAL: Abdomen soft, non-tender, nondistended. MUSCULOSKELETAL: No cyanosis, or edema. BACK: Nontender without obvious deformity. No CVA tenderness. Data Data Last Documented VS Vital Signs Date Time Temp Pulse Resp B/P (MAP) Pulse Ox O2 Delivery O2 Flow Rate FiO2 02/10/17 19:28 98.3 76 18 155/85 (108) 99 Orders Orders Urinalysis - C+S If Indicated (02/10/17 19:24) Ed Urine Pregnancytest Poc (02/10/17 19:41) Basic Metabolic Panel (Bmp) (02/10/17 19:45) Urine Culture (02/10/17 20:00) Lidocaine 1% Inj (50 Ml) (Xylocaine 1% I (02/10/17 20:30) Ceftriaxone Inj (Rocephin Inj) (02/10/17 20:30) Labs Laboratory Tests Test 02/10/17 20:00 Urine Color YELLOW Urine Turbidity SLIGHT Urine pH 6.0 Urine Specific [place] 1.028 Urine Protein TRACE mg/dL Urine Glucose (UA) NEG mg/dL Urine Ketones NEG mg/dL Urine Occult Blood NEG Urine Nitrite NEG Urine Bilirubin NEG Urine Leukocyte Esterase NEG Urine RBC 0-2 /hpf Urine WBC 0-2 /hpf Urine Squamous Epithelial Cells 6-8 /hpf Urine Bacteria MANY /hpf Microscopic Urinalysis Comment CULTURE INDICATED Blood Urea Nitrogen 15 MG/DL Creatinine 1.10 MG/DL Random Glucose 108 MG/DL Calcium Level 8.5 MG/DL Sodium Level 139 MEQ/L Potassium Level 3.8 MEQ/L Chloride Level 105 MEQ/L Carbon Dioxide Level 28.4 MEQ/L Anion Gap 6 MEQ/L Estimat Glomerular Filtration Rate 63 ML/MIN MDM Medical Decision Making Medical Screen Exam Complete: Yes Emergency Medical Condition: Yes Medical Record Reviewed: Yes Interpretation(s) Vital Signs Date Time Temp Pulse Resp B/P (MAP) Pulse Ox O2 Delivery O2 Flow Rate FiO2 02/10/17 19:28 98.3 76 18 155/85 (108) 99 Differential Diagnosis UTI, bladder prolapse, renal insufficiency Narrative Course UA ordered to evaluate for possible UTI, BMP ordered to evaluate for renal function. Patient with no complaints at this time and is well appearing. CBC & BMP Diagram 02/10/17 20:00 Calcium Level 8.5 UA positive for many bacteria, patient was given IM does of Rocephin. She'll be discharged home with Macrobid. She'll follow up with urine cultures from today. Diagnosis Primary Impression: UTI (urinary tract infection) Qualified Codes: N30.00 - Acute cystitis without hematuria Patient Instructions: General Instructions Departure Forms: Tests/Procedures, Work Release Enter return to work date: Feb 13, 2017 Additional Instructions: Please provide patient with a copy of their lab work at discharge Please follow up with your primary care doctor in 2-3 days Return to the ER if symptoms worsen or progress Return to the ER as needed Please follow up with all cultures from today Scripts Phenazopyridine (Pyridium) 100 Mg Tab 100 MG PO Q8H Y for DYSURIA for 3 Days, #9 TAB 0 Refills Prov: Lurdes Hyde DO 02/10/17 Nitrofurantoin Monohydrate Macrocrystals (Macrobid) 100 Mg Cap 100 MG PO BID for Infection for 10 Days, #20 CAP 0 Refills Prov: Lurdes Hyde DO 02/10/17 Disposition: 01 DISCHARGE HOME Condition: Stable Lurdes Hyde DO Feb 10, 2017 19:56
[2017-02-10 20:09] LABS: BILIRUBIN, URINE NEG (NEG); BLOOD, URINE NEG (NEG); GLUCOSE,URINE NEG (NEG); KETONE, URINE NEG (NEG); NITRITE,URINE NEG (NEG); URINE LEUKOCYTE ESTERASE NEG (NEG)
[2017-02-10 20:12] LABS: URINE COLOR YELLOW (YELLW/STRAW)
[2017-02-10 20:13] LABS: WBC, URINE 0-2 /hpf (0-5)
[2017-02-10 20:14] LABS: BACTERIA, URINE MANY /hpf; RBC, URINE 0-2 /hpf (0-3)
[2017-02-10 20:22] LABS: BICARBONATE 28.4 MEQ/L (21.0-32.0); CALCIUM 8.5 MG/DL (8.5-10.1)
[2017-02-10 20:26] LABS: CREATININE 1.1 MG/DL (0.50-1.00)
[2017-02-10] MEDS ORDERED: LIDOCAINE HCL 1% 50 ML VIAL IM ONE (20:30)
[2017-02-10] MEDS ORDERED: PHEN0.4T PO (20:37)
[2017-02-10] MEDS ORDERED: MACR100C2 PO (20:37)
[2017-02-11] MEDS ORDERED: HYDR-2374 PO (22:05)
[2017-02-11] MEDS ORDERED: AMLO10TA2 PO (22:05)
[2017-02-11] MEDS ORDERED: AUGM500T7 PO (22:21)
[2017-02-11] MEDS ORDERED: FLUT1SPR5 EACH NARE (22:21)
== END 2017-02-10 20:58 | disposition home or self-care (01) ==
LOC: PHED 19:17
DX: N30.00 Acute cystitis without hematuria (principal); E11.9 Type 2 diabetes mellitus without complications; I10 Essential (primary) hypertension; E78.00 Pure hypercholesterolemia, unspecified; Z87.39 Personal history of other diseases of the musculoskeletal system and connective tissue; Z87.09 Personal history of other diseases of the respiratory system; Z86.79 Personal history of other diseases of the circulatory system; Z87.19 Personal history of other diseases of the digestive system; Z87.448 Personal history of other diseases of urinary system; Z87.42 Personal history of other diseases of the female genital tract
CPT/HCPCS: 80048; 81001; 84703; 87086; 96372; 99284; J0696

== ENCOUNTER 2017-02-11 21:43 | Emergency (ER) | payer SELFPAY ==
[~2017-02-11 21:43] MED LIST changes: +MACR100C2 PO; -ORPH100T2 PO; +PHEN0.4T PO; -PRED10 PO; +ROBA500T PO
[2017-02-11 21:47] VITALS: BP 179/99; PULSE 77; RESP 16; TEMP 98.4; O2SAT 99
[2017-02-11] MEDS ORDERED: AMLO10TA2 PO (22:05)
[2017-02-11] MEDS ORDERED: HYDR-2374 PO (22:05)
[2017-02-11] MEDS ORDERED: FLUT1SPR5 EACH NARE (22:21)
[2017-02-11] MEDS ORDERED: AUGM500T7 PO (22:21)
--- NOTE | 2017-02-11 22:22 | PD ---
HPI . Nasal congestion 2 weeks Chief Complaint: ENT Complaint Time Seen by Provider: 22:03 Travel History International Travel<30 days: No Contact w/Intl Traveler<30days: No Traveled to known affect area: No History of Present Illness HPI 52-year-old female presents emergency department for evaluation of nasal congestion 2 weeks. Patient states her head feels full and stuffy, her ears feel congested. Patient is stating that the discharge coming from her nose is thick and yellow. Patient denies any cough or sore throat. Patient denies any ear pain but states they feels full. Patient was seen at our facility yesterday and diagnosed with a urinary tract infection. Patient denies any fever. PFSH Past Medical History Hx Anticoagulant Therapy: No Arthritis: Yes Asthma: Yes Cardiovascular Problems: Yes (htn on meds) High Cholesterol: Yes Diabetes: Yes Patient Takes Glucophage: No Diminished Hearing: No GERD: Yes Glaucoma: Yes Genitourinary: Yes (COLLAPSED BLADDER) Herniated Disk: Yes (TWO LOWER BACK, ONE IN NECK) Hypertension: Yes Musculoskeletal: Yes (sees pain management) Neurologic: No Respiratory: Yes (asthma) Immunizations Current: Yes Tetanus Vaccination: < 5 Years Influenza Vaccination: No ?: Not : 3 Para: 2 Miscarriage: 1 Ovarian Cysts: Yes Dilation and Curettage (D&C): Yes Past Surgical History Section: Yes (X2) Other Surgery: Yes (RIGHT BREAST BIOPSY PIN MARKER IN PLACE scalp lesion excision) Social History Alcohol Use: No Tobacco Use: No Substance Use: No Allergies-Medications (Allergen,Severity, Reaction): Coded Allergies: labetalol (Unverified Allergy, Severe, BREATHING/THROAT SWELLS, 02/11/17) Reported Meds & Prescriptions Reported Meds & Active Scripts Active Augmentin (Amoxicillin-Clavulanate) 500-125 mg Tab 500 Mg PO BID 7 Days Flonase Nasal [place] (Fluticasone Nasal [place]) 50 Mcg/Act [place] 50 Mcg EACH NARE BID Reported Hydrocodone-Acetaminophen 10-300 Tab 1 Tab PO Q4H PRN Amlodipine (Amlodipine Besylate) 10 Mg Tab 10 Mg PO DAILY Robaxin (Methocarbamol) 500 Mg Tab 500 Mg PO BID Hydrochlorothiazide 25 Mg Tab 25 Mg PO DAILY Clonidine (Clonidine HCl) 0.1 Mg Tab 0.1 Mg PO BID Amlodipine (Amlodipine Besylate) 10 Mg Tab 10 Mg PO DAILY Gabapentin 800 Mg Tab 600 Mg PO TID Review of Systems Except as stated in HPI: all other systems reviewed are Neg Physical Exam Narrative GENERAL: Well-nourished, well-developed 52-year-old female patient in no acute distress. Nontoxic appearing. SKIN: Focused skin assessment warm/dry. HEAD: Normocephalic. Atraumatic EYES: No scleral icterus. No injection or drainage. ENT: Mucosa pink and moist. No erythema or exudates. No uvular edema. No uvular , palatal, or tonsillar deviation. Airway patent. Nasal turbinates appear hypertrophic without thick yellow discharge noted, no nasal blood or septal hematoma. EARS: Bilateral pinnae and external canals appear within normal limits. Bilateral tympanic membranes without erythema, dullness or perforation. NECK: Supple, trachea midline. No JVD or lymphadenopathy. CARDIOVASCULAR: Regular rate and rhythm without murmurs, gallops, or rubs. RESPIRATORY: Breath sounds equal bilaterally. No accessory muscle use. GASTROINTESTINAL: Abdomen soft, non-tender, nondistended. Data Data Last Documented VS Vital Signs Date Time Temp Pulse Resp B/P (MAP) Pulse Ox O2 Delivery O2 Flow Rate FiO2 02/11/17 21:47 98.4 77 16 179/99 (125) 99 Orders Orders Ed Discharge Order (02/11/17 22:22) [facility] Medical Decision Making Medical Screen Exam Complete: Yes Emergency Medical Condition: Yes Differential Diagnosis Differential diagnoses include but not limited to sinusitis, allergic rhinitis, pharyngitis Narrative Course 52-year-old female presents to emergency room for evaluation of nasal congestion and sinus pressure 2 weeks. Patient denies any fevers, chills, malaise. Patient states the discharge from her nose is thick and yellow. Patient claims her ears and sinuses feel full and pressurized. Patient denies any chest pain, cough, shortness breath, abdominal pain, nausea, vomiting or diarrhea. Patient will be given a prescription for sinusitis and Flonase and discharged home with instructions to follow-up with her primary care and using Claritin or Zyrtec daily may help with allergy congestion. Diagnosis Primary Impression: Sinusitis Qualified Codes: J32.9 - Chronic sinusitis, unspecified Referrals: Primary Care Physician Patient Instructions: General Instructions, Sinusitis (GEN) Additional Instructions: Please return to emergency department if your symptoms return or worsen. Follow up with your primary care provider. Take medications as prescribed. Take [id number] Claritin or Zyrtec daily for symptom control. Med/Other Pt SpecificInfo: Prescription(s) given Scripts Amoxicillin-Clavulanate (Augmentin) 500-125 mg Tab 500 MG PO BID for Infection for 7 Days, TAB 0 Refills Prov: Zo Bosch 02/11/17 Fluticasone Nasal [place] (Flonase Nasal [place]) 50 Mcg/Act [place] 50 MCG EACH NARE BID for Allergies, #1 BOTTLE 0 Refills Prov: Zo Bosch 02/11/17 Disposition: 01 DISCHARGE HOME Condition: Stable Zo Bosch Feb 11, 2017 22:22
--- NOTE | 2017-02-11 22:22 | PD ---
HPI . Nasal congestion 2 weeks Chief Complaint: ENT Complaint Time Seen by Provider: 22:03 Travel History International Travel<30 days: No Contact w/Intl Traveler<30days: No Traveled to known affect area: No History of Present Illness HPI 52-year-old female presents emergency department for evaluation of nasal congestion 2 weeks. Patient states her head feels full and stuffy, her ears feel congested. Patient is stating that the discharge coming from her nose is thick and yellow. Patient denies any cough or sore throat. Patient denies any ear pain but states they feels full. Patient was seen at our facility yesterday and diagnosed with a urinary tract infection. Patient denies any fever. PFSH Past Medical History Hx Anticoagulant Therapy: No Arthritis: Yes Asthma: Yes Cardiovascular Problems: Yes (htn on meds) High Cholesterol: Yes Diabetes: Yes Patient Takes Glucophage: No Diminished Hearing: No GERD: Yes Glaucoma: Yes Genitourinary: Yes (COLLAPSED BLADDER) Herniated Disk: Yes (TWO LOWER BACK, ONE IN NECK) Hypertension: Yes Musculoskeletal: Yes (sees pain management) Neurologic: No Respiratory: Yes (asthma) Immunizations Current: Yes Tetanus Vaccination: < 5 Years Influenza Vaccination: No ?: Not : 3 Para: 2 Miscarriage: 1 Ovarian Cysts: Yes Dilation and Curettage (D&C): Yes Past Surgical History Section: Yes (X2) Other Surgery: Yes (RIGHT BREAST BIOPSY PIN MARKER IN PLACE scalp lesion excision) Social History Alcohol Use: No Tobacco Use: No Substance Use: No Allergies-Medications (Allergen,Severity, Reaction): Coded Allergies: labetalol (Unverified Allergy, Severe, BREATHING/THROAT SWELLS, 02/11/17) Reported Meds & Prescriptions Reported Meds & Active Scripts Active Augmentin (Amoxicillin-Clavulanate) 500-125 mg Tab 500 Mg PO BID 7 Days Flonase Nasal [place] (Fluticasone Nasal [place]) 50 Mcg/Act [place] 50 Mcg EACH NARE BID Reported Hydrocodone-Acetaminophen 10-300 Tab 1 Tab PO Q4H PRN Amlodipine (Amlodipine Besylate) 10 Mg Tab 10 Mg PO DAILY Robaxin (Methocarbamol) 500 Mg Tab 500 Mg PO BID Hydrochlorothiazide 25 Mg Tab 25 Mg PO DAILY Clonidine (Clonidine HCl) 0.1 Mg Tab 0.1 Mg PO BID Amlodipine (Amlodipine Besylate) 10 Mg Tab 10 Mg PO DAILY Gabapentin 800 Mg Tab 600 Mg PO TID Review of Systems Except as stated in HPI: all other systems reviewed are Neg Physical Exam Narrative GENERAL: Well-nourished, well-developed 52-year-old female patient in no acute distress. Nontoxic appearing. SKIN: Focused skin assessment warm/dry. HEAD: Normocephalic. Atraumatic EYES: No scleral icterus. No injection or drainage. ENT: Mucosa pink and moist. No erythema or exudates. No uvular edema. No uvular , palatal, or tonsillar deviation. Airway patent. Nasal turbinates appear hypertrophic without thick yellow discharge noted, no nasal blood or septal hematoma. EARS: Bilateral pinnae and external canals appear within normal limits. Bilateral tympanic membranes without erythema, dullness or perforation. NECK: Supple, trachea midline. No JVD or lymphadenopathy. CARDIOVASCULAR: Regular rate and rhythm without murmurs, gallops, or rubs. RESPIRATORY: Breath sounds equal bilaterally. No accessory muscle use. GASTROINTESTINAL: Abdomen soft, non-tender, nondistended. Data Data Last Documented VS Vital Signs Date Time Temp Pulse Resp B/P (MAP) Pulse Ox O2 Delivery O2 Flow Rate FiO2 02/11/17 21:47 98.4 77 16 179/99 (125) 99 Orders Orders Ed Discharge Order (02/11/17 22:22) [facility] Medical Decision Making Medical Screen Exam Complete: Yes Emergency Medical Condition: Yes Differential Diagnosis Differential diagnoses include but not limited to sinusitis, allergic rhinitis, pharyngitis Narrative Course 52-year-old female presents to emergency room for evaluation of nasal congestion and sinus pressure 2 weeks. Patient denies any fevers, chills, malaise. Patient states the discharge from her nose is thick and yellow. Patient claims her ears and sinuses feel full and pressurized. Patient denies any chest pain, cough, shortness breath, abdominal pain, nausea, vomiting or diarrhea. Patient will be given a prescription for sinusitis and Flonase and discharged home with instructions to follow-up with her primary care and using Claritin or Zyrtec daily may help with allergy congestion. Diagnosis Primary Impression: Sinusitis Qualified Codes: J32.9 - Chronic sinusitis, unspecified Referrals: Primary Care Physician Patient Instructions: General Instructions, Sinusitis (GEN) Additional Instructions: Please return to emergency department if your symptoms return or worsen. Follow up with your primary care provider. Take medications as prescribed. Take [id number] Claritin or Zyrtec daily for symptom control. Med/Other Pt SpecificInfo: Prescription(s) given Scripts Amoxicillin-Clavulanate (Augmentin) 500-125 mg Tab 500 MG PO BID for Infection for 7 Days, TAB 0 Refills Prov: Zo Bosch 02/11/17 Fluticasone Nasal [place] (Flonase Nasal [place]) 50 Mcg/Act [place] 50 MCG EACH NARE BID for Allergies, #1 BOTTLE 0 Refills Prov: Zo Bosch 02/11/17 Disposition: 01 DISCHARGE HOME Condition: Stable Zo Bosch Feb 11, 2017 22:22
== END 2017-02-11 22:32 | disposition home or self-care (01) ==
LOC: PHEFT 21:43
DX: J32.9 Chronic sinusitis, unspecified (principal); N39.0 Urinary tract infection, site not specified; M19.90 Unspecified osteoarthritis, unspecified site; J45.909 Unspecified asthma, uncomplicated; I10 Essential (primary) hypertension; E78.00 Pure hypercholesterolemia, unspecified; E11.9 Type 2 diabetes mellitus without complications; K21.9 Gastro-esophageal reflux disease without esophagitis; Z79.899 Other long term (current) drug therapy
CPT/HCPCS: 99283

== ENCOUNTER 2017-02-23 18:51 | Emergency (ER) | payer SELFPAY ==
[~2017-02-23] VITALS: Ht 162.6 cm; Wt 114.1 kg
[~2017-02-23 18:51] MED LIST changes: +AUGM500T7 PO; +FLUT1SPR5 EACH NARE; +HYDR-2374 PO; -MACR100C2 PO; -METF500T PO; -PERC7.5T13 PO; -PHEN0.4T PO
[2017-02-23 19:11] VITALS: BP 210/129; PULSE 77; RESP 20; TEMP 98.9; O2SAT 97
--- NOTE | 2017-02-23 21:11 | PD ---
HPI Chief Complaint: Hypertension Time Seen by Provider: 21:10 Travel History International Travel<30 days: No Contact w/Intl Traveler<30days: No Traveled to known affect area: No History of Present Illness HPI 52-year-old female came to the emergency room with history of chronic pain that is acting up because she ran out of her hydrocodone prescription. These medications are prescribed by Dr. Dueñas. Patient also ran out of her high blood pressure medications. The last time she took her medications was last Monday. Her blood pressure currently is 225 systolic. Patient continues to complain of neck and back pain which is her chronic pain. No history of chest pain, headache or blurred vision. Patient's intention for this visit is to get prescription refill for her pain medications. PFSH Past Medical History Narrative Medical List of her past medical, surgical, social and family history is reviewed from the nursing note. Hx Anticoagulant Therapy: No Arthritis: Yes Asthma: Yes Cardiovascular Problems: Yes (htn on meds) High Cholesterol: Yes Diabetes: Yes Diminished Hearing: No GERD: Yes Glaucoma: Yes Genitourinary: Yes (COLLAPSED BLADDER) Herniated Disk: Yes (TWO LOWER BACK, ONE IN NECK) Hypertension: Yes Musculoskeletal: Yes (sees pain management) Neurologic: No Respiratory: Yes (asthma) Immunizations Current: Yes ?: Not : 3 Para: 2 Miscarriage: 1 Ovarian Cysts: Yes Dilation and Curettage (D&C): Yes Past Surgical History Section: Yes (X2) Other Surgery: Yes (RIGHT BREAST BIOPSY PIN MARKER IN PLACE scalp lesion excision) Social History Alcohol Use: No Tobacco Use: No Substance Use: No Allergies-Medications (Allergen,Severity, Reaction): Coded Allergies: labetalol (Unverified Allergy, Severe, BREATHING/THROAT SWELLS, 02/23/17) Comments List of her allergies reviewed from the nursing note. Reported Meds & Prescriptions Reported Meds & Active Scripts Active Clonidine (Clonidine HCl) 0.1 Mg Tab 0.1 Mg PO BID Amlodipine (Amlodipine Besylate) 10 Mg Tab 10 Mg PO DAILY Flonase Nasal [place] (Fluticasone Nasal [place]) 50 Mcg/Act [place] 50 Mcg EACH NARE BID Reported Metformin (Metformin HCl) 500 Mg Tab 500 Mg PO BIDPC Percocet (Oxycodone-Acetaminophen) 10-325 mg Tab 1 Tab PO Q4H PRN Amlodipine (Amlodipine Besylate) 10 Mg Tab 10 Mg PO DAILY Robaxin (Methocarbamol) 500 Mg Tab 500 Mg PO BID Hydrochlorothiazide 25 Mg Tab 25 Mg PO DAILY Clonidine (Clonidine HCl) 0.1 Mg Tab 0.1 Mg PO BID Gabapentin 800 Mg Tab 600 Mg PO TID Narrative Medication List of her home medications reviewed from the nursing note. Review of Systems Except as stated in HPI: all other systems reviewed are Neg Physical Exam Narrative GENERAL: Awake, alert, morbidly obese, no obvious distress SKIN: Focused skin assessment warm/dry. HEAD: Atraumatic. Normocephalic. EYES: Pupils equal and round. No scleral icterus. No injection or drainage. ENT: No nasal bleeding or discharge. Mucous membranes pink and moist. NECK: Trachea midline. No JVD. CARDIOVASCULAR: Regular rate and rhythm. No murmur appreciated. RESPIRATORY: No accessory muscle use. Clear to auscultation. Breath sounds equal bilaterally. GASTROINTESTINAL: Abdomen soft, non-tender, nondistended. Hepatic and splenic margins not palpable. MUSCULOSKELETAL: No obvious deformities. No clubbing. No cyanosis. No edema. NEUROLOGICAL: Awake and alert. No obvious cranial nerve deficits. Motor grossly within normal limits. Normal speech. PSYCHIATRIC: Appropriate mood and affect; insight and judgment normal. Data Data Last Documented VS Vital Signs Date Time Temp Pulse Resp B/P (MAP) Pulse Ox O2 Delivery O2 Flow Rate FiO2 02/23/17 22:42 70 18 133/84 (100) 98 02/23/17 19:11 98.9 Orders Orders Amlodipine (Norvasc) (02/23/17 21:30) Clonidine (Catap[place]) (02/23/17 21:30) Acetamin-Hydrocod 325-5 Mg ([place] 5-325 (02/23/17 21:30) Amlodipine (Norvasc) (02/23/17 21:30) Ed Discharge Order (02/23/17 21:38) [facility] Medical Decision Making Medical Screen Exam Complete: Yes Emergency Medical Condition: Yes Medical Record Reviewed: Yes Differential Diagnosis Essential hypertension, prescription should refill, chronic pain management Narrative Course 9:33 PM I have given the patient her usual blood pressure medication as well as hydrocodone. Pressure will be rechecked. Patient has been in the emergency room multiple times in the past for various issues including prescription refill. She will have to go back to her decision who prescribes her pain medication. I will give her a prescription refill for 1 week worth for the blood pressure medications. Patient will be discharged home once the blood pressure comes down. Procedures EKG Prior to Arrival: No Diagnosis Primary Impression: Essential hypertension Additional Impressions: Noncompliance with medications Prescription refill Referrals: Primary Care Physician Additional Instructions: Emergency room is not a place to get medication refills. Please go to your primary care physician or the physician who prescribes her medications especially chronic pain management medication. You are given 1 week of blood pressure medication prescription. Before the prescription runs out to should contact your physician to write for refills. Med/Other Pt SpecificInfo: Prescription(s) given Scripts Clonidine (Clonidine) 0.1 Mg Tab 0.1 MG PO BID for Blood Pressure Management, #14 TAB 0 Refills Prov: Di Yates MD 02/23/17 Amlodipine (Amlodipine) 10 Mg Tab 10 MG PO DAILY for Blood Pressure Management, #7 TAB 0 Refills Prov: Di Yates MD 02/23/17 Disposition: 01 DISCHARGE HOME Condition: Stable Di Yates MD Feb 23, 2017 21:11
[2017-02-23] MEDS ORDERED: amLODIPine BESYLATE 5 MG TAB PO ONE (21:30)
[2017-02-23] MEDS ORDERED: cloNIDine HCL 0.2 MG TAB PO ONE (21:30)
[2017-02-23] MEDS ORDERED: ACETAMINOPHEN/HYDROcodone 325 MG/5 MG TAB PO ONE (21:30)
[2017-02-23] MEDS ORDERED: PERC10TA27 PO (21:34)
[2017-02-23] MEDS ORDERED: AMLO10TA2 PO (21:37)
[2017-02-23] MEDS ORDERED: CLON0.1T PO (21:37)
[2017-02-23] MEDS ORDERED: METF500T PO (21:40)
[2017-02-23 22:31] VITALS: RESP 18
[2017-02-23 22:42] VITALS: BP 133/84
== END 2017-02-23 22:55 | disposition home or self-care (01) ==
LOC: PHED 18:51
DX: I10 Essential (primary) hypertension (principal); Z76.0 Encounter for issue of repeat prescription; Z91.14 Patient's other noncompliance with medication regimen
CPT/HCPCS: 99284

== ENCOUNTER 2017-03-29 20:10 | Observation (INO) | payer SELFPAY ==
[~2017-03-29] VITALS: Ht 170.2 cm; Wt 113.4 kg
[~2017-03-29 20:10] MED LIST changes: -AUGM500T7 PO; -HYDR-2374 PO; +METF500T PO; +PERC10TA27 PO
[2017-03-29 20:20] VITALS: BP 206/116; PULSE 86; RESP 16; TEMP 99.2; O2SAT 98
[2017-03-29 20:41] VITALS: BP 166/97; PULSE 71; RESP 20; O2SAT 100
[2017-03-29] MEDS ORDERED: PROPARACAINE HCL 0.5% OPHT SOLN 15 ML BTL EACH EYE ONE (21:15)
[2017-03-29] MEDS ORDERED: SODIUM CHLORIDE 0.9% FLUSH 10 ML FLUSH IVF PRN (21:15)
--- NOTE | 2017-03-29 21:30 | RADRPT ---
EXAM DATE/TIME: 03/29/2017 21:15 [facility] COMPARISON: No previous studies available for comparison. INDICATIONS : Cephalgia, dizziness, and blurred vision. RADIATION DOSE: 64.70 CTDIvol (mGy) MEDICAL HISTORY : Hypertension. Diabetes mellitus type 2. SURGICAL HISTORY : None. ENCOUNTER: Initial ACUITY: 1 day PAIN SCALE: 5/10 LOCATION: cranial TECHNIQUE: Multiple contiguous axial images were obtained of the head. Using automated exposure control and adj ustment of the mA and/or kV according to patient size, radiation dose was kept as low as reasonably a chievable to obtain optimal diagnostic quality images. DICOM format image data is available electro nically for review and comparison. FINDINGS: CEREBRUM: The ventricles are normal for age. No evidence of midline shift, mass lesion, hemorrhage or acute in farction. No extra-axial fluid collections are seen. POSTERIOR FOSSA: The cerebellum and brainstem are intact. The 4th ventricle is midline. The cerebellopontine angle i s unremarkable. EXTRACRANIAL: The visualized portion of the orbits is intact. SKULL: The calvaria is intact. No evidence of skull fracture. CONCLUSION: Normal examination for a patient of this age. Manan Gomez MD on March 29, 2017 at 21:27 Board Certified Radiologist. This report was verified electronically.
[2017-03-29] MEDS ORDERED: KETOROLAC TROMETHAMINE 30 MG/ML (IVP) VIAL IV PUSH ONE (21:45)
[2017-03-29] MEDS ORDERED: ONDANSETRON HCL 4 MG/2 ML VIAL IV PUSH ONE (21:45)
[2017-03-29 21:51] VITALS: BP 193/112; PULSE 64; RESP 20; O2SAT 98
[2017-03-29 22:06] LABS: AUTOMATED NEUTROPHIL # 3.5 TH/MM3 (1.8-7.7); BASOPHIL # 0.1 TH/MM3 (0-0.2); EOSINOPHIL # 0.1 TH/MM3 (0-0.4); EOSINOPHIL % 2.6 % (0.0-4.0); HEMATOCRIT 38.7 % (35.0-46.0); HEMO FLAGS DIFF FINAL; LYMPHOCYTE # 1.8 TH/MM3 (1.0-4.8); MEAN CELL VOLUME 84.4 FL (80.0-100.0); MEAN CORPUSCULAR HEMOGLOBIN 27.3 PG (27.0-34.0); MEAN CORPUSCULAR HGB CONC 32.4 % (32.0-36.0); MONO % 4.3 % (0.0-8.0); NEUT % 61.1 % (16.0-70.0); PLATELET COUNT 322 TH/MM3 (150-450); RED BLOOD COUNT 4.58 MIL/MM3 (4.00-5.30); WHITE BLOOD COUNT 5.7 TH/MM3 (4.0-11.0)
[2017-03-29 22:09] VITALS: BP 208/109; PULSE 58; RESP 20; O2SAT 96
[2017-03-29 22:33] LABS: APTT (PATIENT) 25.4 SEC (24.3-30.1); INTERNATIONAL NORMALIZED RATIO 1.1 RATIO; PROTHROMBIN TIME - PATIENT 10.8 SEC (9.8-11.6)
[2017-03-29 22:35] LABS: BICARBONATE 26.9 MEQ/L (21.0-32.0)
[2017-03-29 22:36] LABS: POTASSIUM 2.5 MEQ/L (3.5-5.1)
[2017-03-29 22:41] VITALS: BP 196/103; PULSE 64; RESP 20; O2SAT 99
[2017-03-29] MEDS ORDERED: POTASSIUM CHLORIDE 20 MEQ CONTROLLED RELEASE TAB PO ONE (23:00)
[2017-03-29] MEDS ORDERED: POTASSIUM CHLOR 10 MEQ PREMIX 100 ML IV ONE (23:00)
[2017-03-29] MEDS ORDERED: hydrALAZINE HCL 20 MG/ML VIAL IV PUSH ONE (23:00)
[2017-03-29 23:11] VITALS: BP 171/102; PULSE 64; RESP 20; O2SAT 100
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
[2017-03-30] VITALS (14 sets, daily range): BP systolic 134–199; BP diastolic 73–122; PULSE 58–80; RESP 16–20; TEMP 97.1–98.4; O2SAT 95–100
[2017-03-30] MEDS ORDERED: hydrALAZINE HCL 20 MG/ML VIAL IV PUSH ONE (01:00)
[2017-03-30] MEDS ORDERED: cloNIDine HCL 0.1 MG TAB PO ONE (01:15)
[2017-03-30] MEDS ORDERED: SODIUM CHLORIDE 0.9% FLUSH 10 ML FLUSH IV FLUSH PRN (01:30)
[2017-03-30] MEDS ORDERED: LACTULOSE SYRUP 20 GM/30 ML CUP PO PRN (01:30)
[2017-03-30] MEDS ORDERED: ACETAMINOPHEN 325 MG TAB PO PRN (01:30)
[2017-03-30] MEDS ORDERED: cloNIDine HCL 0.2 MG TAB PO PRN (01:30)
[2017-03-30] MEDS ORDERED: SENNOSIDES 8.6 MG TAB PO PRN (01:30)
[2017-03-30] MEDS ORDERED: MAGNESIUM HYDROXIDE SUSP 30 ML CUP PO PRN (01:30)
[2017-03-30] MEDS ORDERED: NALOXONE HCL 0.4 MG/ML AMP IV PUSH PRN (01:30)
[2017-03-30] MEDS ORDERED: BISACODYL 10 MG SUPP RECTAL PRN (01:30)
[2017-03-30] MEDS ORDERED: oxyCODONE/ACETAMINOPHEN 7.5 MG/325 MG TAB PO ONE (02:15)
[2017-03-30] MEDS: MORPHINE SULFATE 4 MG/ML INJ IV PUSH PRN ×4 (04:10→21:15)
[2017-03-30] MEDS ORDERED: GABAPENTIN 400 MG CAP PO SCH ×2 (09:00)
[2017-03-30] MEDS ORDERED: GABAPENTIN 300 MG CAP PO SCH (09:00)
[2017-03-30] MEDS: cloNIDine HCL 0.1 MG TAB PO SCH ×2 (09:57→21:13)
[2017-03-30] MEDS: HYDROCHLOROTHIAZIDE 25 MG TAB PO SCH (09:57)
[2017-03-30] MEDS: DOCUSATE SODIUM 50 MG/SENNA 8.6 MG TAB PO SCH ×3 (10:01→21:14)
[2017-03-30] MEDS: SODIUM CHLORIDE 0.9% FLUSH 10 ML FLUSH IV FLUSH SCH ×2 (10:02→21:13)
[2017-03-30 11:11] LABS: BICARBONATE 26.5 MEQ/L (21.0-32.0); MAGNESIUM 2.1 MG/DL (1.5-2.5); POTASSIUM 3.4 MEQ/L (3.5-5.1)
[2017-03-30] MEDS: ONDANSETRON HCL 4 MG/2 ML VIAL IVP PRN ×2 (12:33→21:18)
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
--- NOTE | 2017-03-30 13:29 | HHI.HP ---
[facility] Unknown Admission Diagnosis HTN, accelerated; hypokalemia Diagnoses: Chief Complaint: Headache and blurry vision Travel History International Travel<30 Days: No Contact w/Intl Traveler <30 Da: No Traveled to Known Affected Are: No History of Present Illness Patient is a 52-year-old female with known history of hypertension as well as chronic back pain on chronic narcotics. She reports over the last 2 days he had distant changes as well as headache. Her blood pressure here had been 206/ 116. Patient was also hypokalemic. She is admitted to the emergency room for further evaluation of uncontrolled blood pressure. She has run out of her narcotics and gabapentin. When these medications were resumed her blood pressure and headache improved. She does have a history of pseudotumor cerebri and had been on Diamox in the past. Apparently her neurologist had taken her off of that. The original diagnosis was in 2008. The patient has reported no fevers or chills. No nausea and vomiting. She had run out of funds to obtain her medications although she has prescriptions. Discharge plans were discussed with this patient for continued follow-up with her primary care doctor as well as her neurologist and pain specialist Dr. Dueñas Review of Systems Constitutional: DENIES: Diaphoretic episodes, Fatigue, Fever, Weight gain, Weight loss, Chills, Dizziness, Change in appetite, Night Sweats Endocrine: DENIES: Abnorml menstrual pattern, Heat/cold intolerance, Polydipsia , Polyuria, Polyphagia Eyes: DENIES: Blurred vision, Diplopia, Eye inflammation, Eye pain, Vision loss , Photosensitivity, Double Vision Ears, nose, mouth, throat: DENIES: Tinnitus, Hearing loss, Vertigo, Nasal discharge, Oral lesions, Throat pain, Hoarseness, Ear Pain, Running Nose, Epistaxis, Sinus Pain, Toothache, Odynophagia Respiratory: DENIES: Apneas, Cough, Snoring, Wheezing, Hemoptysis, Sputum production, Shortness of breath Cardiovascular: DENIES: Chest pain, Palpitations, Syncope, Dyspnea on Exertion , PND, Lower Extremity Edema, Orthopnea, Claudication Gastrointestinal: DENIES: Abdominal pain, Black stools, Bloody stools, Constipation, Diarrhea, Nausea, Vomiting, Difficulty Swallowing, Anorexia Genitourinary: DENIES: Abnormal vaginal bleeding, Dysmenorrhea, Dyspareunia, Sexual dysfunction, Urinary frequency, Urinary incontinence, Urgency, Hematuria , Dysuria, Nocturia, Vaginal discharge Musculoskeletal: COMPLAINS OF: Joint pain, Back pain Integumentary: DENIES: Abnormal pigmentation, Pruritus, Rash, Nail changes, Breast masses, Breast skin changes, Nipple discharge Hematologic/lymphatic: DENIES: Bruising, Lymphadenopathy Immunologic/allergic: DENIES: Eczema, Urticaria Neurologic: DENIES: Abnormal gait, Headache, Localized weakness, Paresthesias, Seizures, Speech Problems, Tremor, Poor Balance Psychiatric: DENIES: Anxiety, Confusion, Mood changes, Depression, Hallucinations, Agitation, Suicidal Ideation, Homicidal Ideation, Delusions Except as stated in HPI: all other systems reviewed are Neg Past Family Social History Past Medical History Hypertension Back pain Glaucoma pseudotumor cerebri and follow-up with her local neurologist Past Surgical History 2, D&C Spinal tap Reported Medications Reviewed in the EMR, ran out of gabapentin, Percocet tens, methocarbamol and the last week Allergies: Coded Allergies: labetalol (Unverified Allergy, Severe, BREATHING/THROAT SWELLS, 03/29/17) Active Ordered Medications Reviewed in the EMR Family History Family history of hypertension Social History She is employed, , no tobacco or alcohol dependency Physical Exam Vital Signs Vital Signs Date Time Temp Pulse Resp B/P (MAP) Pulse Ox O2 Delivery O2 Flow Rate FiO2 03/30/17 09:20 98.2 67 20 188/102 (130) 98 03/30/17 04:29 63 03/30/17 03:50 97.1 66 16 165/99 (121) 100 03/30/17 03:45 62 20 149/81 (103) 99 03/30/17 03:18 20 03/30/17 03:11 58 20 169/86 (113) 100 03/30/17 02:11 70 20 134/78 (96) 98 03/30/17 01:11 72 20 171/96 (121) 97 03/30/17 00:40 76 20 174/87 (116) 100 03/29/17 23:11 64 20 171/102 (125) 100 03/29/17 22:41 64 20 196/103 (134) 99 03/29/17 22:09 58 20 208/109 (142) 96 03/29/17 21:51 64 20 193/112 (139) 98 03/29/17 20:45 77 20 98 03/29/17 20:41 71 20 166/97 (120) 100 03/29/17 20:20 99.2 86 16 206/116 (146) 98 Physical Exam GENERAL: This is a well-nourished, well-developed patient, in no apparent distress. SKIN: No rashes, ecchymoses or lesions. Cool and dry. HEAD: Atraumatic. Normocephalic. No temporal or scalp tenderness. EYES: Pupils equal round and reactive. Extraocular motions intact. No scleral icterus. No injection or drainage. ENT: Nose without bleeding, purulent drainage or septal hematoma. Throat without erythema, tonsillar hypertrophy or exudate. Uvula midline. Airway patent. NECK: Trachea midline. No JVD or lymphadenopathy. Supple, nontender, no meningeal signs. CARDIOVASCULAR: Regular rate and rhythm without murmurs, gallops, or rubs. RESPIRATORY: Clear to auscultation. Breath sounds equal bilaterally. No wheezes , rales, or rhonchi. GASTROINTESTINAL: Abdomen soft, non-tender, nondistended. No hepato-splenomegaly , or palpable masses. No guarding. MUSCULOSKELETAL: Extremities without clubbing, cyanosis, or edema. No joint tenderness, effusion, or edema noted. No calf tenderness. Negative Homans sign bilaterally. NEUROLOGICAL: Awake and alert. Cranial nerves II through XII intact. Motor and sensory grossly within normal limits. Five out of 5 muscle strength in all muscle groups. Normal speech. Laboratory Laboratory Tests Test 03/29/17 21:55 03/30/17 10:10 White Blood Count 5.7 Red Blood Count 4.58 Hemoglobin 12.5 Hematocrit 38.7 Mean Corpuscular Volume 84.4 Mean Corpuscular Hemoglobin 27.3 Mean Corpuscular Hemoglobin Concent 32.4 Red Cell Distribution Width 14.0 Platelet Count 322 Mean Platelet Volume 7.8 Neutrophils (%) (Auto) 61.1 Lymphocytes (%) (Auto) 31.0 Monocytes (%) (Auto) 4.3 Eosinophils (%) (Auto) 2.6 Basophils (%) (Auto) 1.0 Neutrophils # (Auto) 3.5 Lymphocytes # (Auto) 1.8 Monocytes # (Auto) 0.2 Eosinophils # (Auto) 0.1 Basophils # (Auto) 0.1 CBC Comment DIFF FINAL Differential Comment Erythrocyte Sedimentation Rate 21 Prothrombin Time 10.8 Prothromb Time International Ratio 1.1 Activated Partial Thromboplast Time 25.4 Blood Urea Nitrogen 19 15 Creatinine 1.20 1.20 Random Glucose 147 173 Calcium Level 8.8 8.9 Sodium Level 139 141 Potassium Level 2.5 3.4 Chloride Level 103 105 Carbon Dioxide Level 26.9 26.5 Anion Gap 9 10 Estimat Glomerular Filtration Rate 57 57 Magnesium Level 2.1 Result Diagram: 03/29/17215403/30/17 1010 Imaging Last Impressions Head CT 03/29/172103 Signed Impressions: Service Date/Time: Wednesday, March 29, 2017 21:15 - CONCLUSION: Normal examination for a patient of this age. Manan Gomez MD Assessment and Plan Problem List: (1) Visual acuity reduced ICD Code: H54.7 - Unspecified visual loss Status: Acute Plan: secondary to glaucoma as well as hypertensive urgency Blood pressure improved Visual changes are resolving. Patient will follow-up with her primary care provider as well as outpatient ophthalmology (2) HTN (hypertension) ICD Code: I10 - Essential (primary) hypertension Status: Acute Plan: Patient will continue with Norvasc, hydralazine and clonidine as well as his chlorothiazide. Patient did run out of her medications for the last several days. She had been taking gabapentin, Percocet and methocarbamol rate she is out of those for the last several days due to lack of finances. These have been resumed and her blood pressure seems to have improved. His chronic back pain and follows up with Dr. Dueñas. Assessment and Plan Discharge home Diet heart healthy Activity unrestricted Problem Qualifiers (1) HTN (hypertension): Qualified Codes: I10 - Essential (primary) hypertension Dorothy Wang MD Mar 30, 2017 13:29
--- NOTE | 2017-03-30 14:10 | EKG ---
Date Performed: 03/30/2017 Time Performed: 02:46:30 PTAGE: 52 years EKG: Sinus rhythm BORDERLINE LEFT AXIS DEVIATION BORDERLINE ECG Compared to prior tracing no significant change PREVIOUS TRACING : 02/19/2016 11.11 DOCTOR: Zenaida Durán Interpretating Date/Time 03/30/2017 14:08:56
[2017-03-30] MEDS: hydrALAZINE HCL 25 MG TAB PO SCH ×2 (14:35→21:14)
[2017-03-30] MEDS: GABAPENTIN 300 MG CAP PO SCH (21:14)
[2017-03-31] VITALS: BP 136/79; PULSE 61; RESP 17; TEMP 97.1; O2SAT 98
[2017-03-31] MEDS: MORPHINE SULFATE 4 MG/ML INJ IV PUSH PRN ×2 (03:57→08:24)
[2017-03-31 04:00] VITALS: BP 139/80; PULSE 72; RESP 18; TEMP 97.9; O2SAT 97
[2017-03-31] MEDS: hydrALAZINE HCL 25 MG TAB PO SCH (06:05)
[2017-03-31 06:23] LABS: POTASSIUM 3.1 MEQ/L (3.5-5.1)
[2017-03-31 06:25] LABS: AUTOMATED NEUTROPHIL # 2.9 TH/MM3 (1.8-7.7); BASOPHIL % 0.8 % (0.0-2.0); EOSINOPHIL # 0.2 TH/MM3 (0-0.4); EOSINOPHIL % 3.4 % (0.0-4.0); HEMO FLAGS DIFF FINAL; LYMPH % 37.4 % (9.0-44.0); MEAN CELL VOLUME 84.5 FL (80.0-100.0); MEAN CORPUSCULAR HEMOGLOBIN 27.2 PG (27.0-34.0); MEAN CORPUSCULAR HGB CONC 32.2 % (32.0-36.0); MONO % 6.5 % (0.0-8.0); NEUT % 51.9 % (16.0-70.0); PLATELET COUNT 284 TH/MM3 (150-450); RED BLOOD COUNT 4.15 MIL/MM3 (4.00-5.30); RED CELL DISTRIBUTION WIDTH 13.8 % (11.6-17.2); WHITE BLOOD COUNT 5.4 TH/MM3 (4.0-11.0)
[2017-03-31 06:27] LABS: BICARBONATE 27.5 MEQ/L (21.0-32.0)
[2017-03-31 08:00] VITALS: BP 136/86; PULSE 65; RESP 18; TEMP 98.4; O2SAT 100
[2017-03-31] MEDS: cloNIDine HCL 0.1 MG TAB PO SCH (08:14)
[2017-03-31] MEDS: GABAPENTIN 300 MG CAP PO SCH (08:14)
[2017-03-31] MEDS: DOCUSATE SODIUM 50 MG/SENNA 8.6 MG TAB PO SCH (08:14)
[2017-03-31] MEDS: HYDROCHLOROTHIAZIDE 25 MG TAB PO SCH (08:14)
[2017-03-31] MEDS: SODIUM CHLORIDE 0.9% FLUSH 10 ML FLUSH IV FLUSH SCH (08:15)
[2017-03-31 08:30] VITALS: RESP 16
[2017-03-31] MEDS ORDERED: PERC10TA27 PO (11:07)
--- NOTE | 2017-03-31 11:09 | HHI.PR ---
Subjective Remarks patient seen in follow up for htn Patient doing better. Blood pressure improved Discharge plans discussed with patient Objective Vitals Vital Signs Date Time Temp Pulse Resp B/P (MAP) Pulse Ox O2 Delivery O2 Flow Rate FiO2 03/31/17 08:30 16 03/31/17 08:00 98.4 65 18 136/86 (103) 100 03/31/17 04:00 97.9 72 18 139/80 (99) 97 03/31/17 00:00 97.1 61 17 136/79 (98) 98 03/30/17 20:00 80 03/30/17 20:00 97.7 71 18 142/82 (102) 97 03/30/17 17:54 98.4 69 16 136/73 (94) 95 03/30/17 14:46 97.6 68 16 97 03/30/17 14:37 173/95 (121) 03/30/17 13:00 199/122 (147) I/O 03/30/17 03/30/17 03/30/17 03/31/17 03/31/17 03/31/17 06:59 14:59 22:59 06:59 14:59 22:59 Intake Total 460 ml 800 ml Balance 460 ml 800 ml Intake Oral 360 ml 800 ml IV Total 100 ml # Voids 3 3 3 # Bowel Movements 0 Result Diagram: 03/31/1744203/31/17442 Objective Remarks GENERAL: This is a well-nourished, well-developed patient, in no apparent distress. CARDIOVASCULAR: Regular rate and rhythm without murmurs, gallops, or rubs. RESPIRATORY: Clear to auscultation. Breath sounds equal bilaterally. No wheezes , rales, or rhonchi. GASTROINTESTINAL: Abdomen soft, non-tender, nondistended. Normal active bowel sounds MUSCULOSKELETAL: Extremities without clubbing, cyanosis, or edema. NEURO: Alert & Oriented x4 to person, place, time, situation. Moves all ext x4 A/P Problem List: (1) Visual acuity reduced ICD Code: H54.7 - Unspecified visual loss Status: Acute Plan: Resolved secondary to glaucoma as well as hypertensive urgency Blood pressure improved Visual changes are resolving. Patient will follow-up with her primary care provider as well as outpatient ophthalmology (2) HTN (hypertension) ICD Code: I10 - Essential (primary) hypertension Status: Acute Plan: Resolved Patient will continue with Norvasc, hydralazine and clonidine as well as his chlorothiazide. Patient did run out of her medications for the last several days. She had been taking gabapentin, Percocet and methocarbamol rate she is out of those for the last several days due to lack of finances. These have been resumed and her blood pressure seems to have improved. His chronic back pain and follows up with Dr. Dueñas. Assessment and Plan Discharge home Heart healthy diet Activity as tolerated Problem Qualifiers (1) HTN (hypertension): Qualified Codes: I10 - Essential (primary) hypertension Dorothy Wang MD Mar 31, 2017 11:09
[2017-03-31] MEDS ORDERED: ROBA500T PO (12:05)
[2017-03-31] MEDS ORDERED: GABA800T PO (12:05)
[2017-03-31] MEDS ORDERED: HYDR25TA5 PO (12:05)
[2017-03-31] MEDS ORDERED: METF500T PO (12:05)
[2017-03-31] MEDS ORDERED: CLON0.1T PO (12:05)
[2017-03-31] MEDS ORDERED: AMLO10TA2 PO (12:05)
== END 2017-03-31 12:19 | disposition home or self-care (01) ==
LOC: PHED 20:10 → PHEDA 03-30 01:30 → PH3A 03-30 03:52
PROVIDERS: ADMIT Hospitalist; ATTEND Hospitalist
DX: H54.7 Unspecified visual loss (principal); I10 Essential (primary) hypertension; I16.0 Hypertensive urgency; E87.6 Hypokalemia; E11.9 Type 2 diabetes mellitus without complications; J45.909 Unspecified asthma, uncomplicated; E78.00 Pure hypercholesterolemia, unspecified; M54.9 Dorsalgia, unspecified; G89.4 Chronic pain syndrome; K21.9 Gastro-esophageal reflux disease without esophagitis; M19.90 Unspecified osteoarthritis, unspecified site; H40.9 Unspecified glaucoma; Z79.899 Other long term (current) drug therapy; Z79.84 Long term (current) use of oral hypoglycemic drugs
CPT/HCPCS: 70450; 80048; 82948; 83735; 85025; 85610; 85652; 85730; 93005; 96365; 96366; 96375; 96376; 99285; G0378; J0360; J1885; J2270; J2405; J3480

== ENCOUNTER 2017-05-08 10:42 | Emergency (ER) | payer SELFPAY ==
[2017-05-08] MEDS: cloNIDine HCL 0.1 MG TAB PO (11:14)
[2017-05-08 11:26] LABS: BASOPHIL % 0.6 % (0.0-2.0); EOSINOPHIL # 0.2 TH/MM3 (0-0.4); HEMATOCRIT 38.5 % (35.0-46.0); HEMO FLAGS DIFF FINAL; HEMOGLOBIN 12.4 GM/DL (11.6-15.3); LYMPH % 23.3 % (9.0-44.0); LYMPHOCYTE # 1.4 TH/MM3 (1.0-4.8); MEAN CELL VOLUME 85.2 FL (80.0-100.0); MEAN CORPUSCULAR HEMOGLOBIN 27.3 PG (27.0-34.0); MEAN CORPUSCULAR HGB CONC 32.1 % (32.0-36.0); MEAN PLATELET VOLUME 7.4 FL (7.0-11.0); MONO % 4.2 % (0.0-8.0); MONOCYTE # 0.2 TH/MM3 (0-0.9); NEUT % 68.9 % (16.0-70.0); PLATELET COUNT 358 TH/MM3 (150-450); RED BLOOD COUNT 4.52 MIL/MM3 (4.00-5.30); RED CELL DISTRIBUTION WIDTH 12.8 % (11.6-17.2); WHITE BLOOD COUNT 5.8 TH/MM3 (4.0-11.0)
[2017-05-08 11:32] LABS: CHLORIDE 103 MEQ/L (98-107); POTASSIUM 3.9 MEQ/L (3.5-5.1); SODIUM (NA) 139 MEQ/L (136-145)
[2017-05-08 11:35] LABS: ANION GAP 7 MEQ/L (5-15); BICARBONATE 28.7 MEQ/L (21.0-32.0); BLOOD UREA NITROGEN 11 MG/DL (7-18); CALCIUM 9.2 MG/DL (8.5-10.1); GLUCOSE,RANDOM 188 MG/DL (74-106)
[2017-05-08 11:38] LABS: GLOMERULAR FILTRATION RATE 57 ML/MIN (>89)
== END 2017-05-08 12:40 | disposition home or self-care (01) ==
LOC: PHED 10:42
DX: I10 Essential (primary) hypertension (principal); E78.00 Pure hypercholesterolemia, unspecified; E11.9 Type 2 diabetes mellitus without complications; G89.29 Other chronic pain; G47.30 Sleep apnea, unspecified; J45.909 Unspecified asthma, uncomplicated; K21.9 Gastro-esophageal reflux disease without esophagitis; H40.9 Unspecified glaucoma; N83.209 Unspecified ovarian cyst, unspecified side; Z79.84 Long term (current) use of oral hypoglycemic drugs; Z79.899 Other long term (current) drug therapy
CPT/HCPCS: 80048; 85025; 99283

== ENCOUNTER 2017-06-22 13:46 | Emergency (ER) | payer SELFPAY ==
[~2017-06-22] VITALS: Ht 162.6 cm; Wt 113.1 kg
[2017-06-22] VITALS (8 sets, daily range): BP systolic 167–234; BP diastolic 82–130; PULSE 67–86; RESP 16–18; TEMP 98.1; O2SAT 96–100
[~2017-06-22 13:46] MED LIST changes: -FLUT1SPR5 EACH NARE; +IBUP-232 PO
[2017-06-22] MEDS ORDERED: cloNIDine HCL 0.1 MG TAB PO ONE (14:15)
[2017-06-22] MEDS ORDERED: HYDROCHLOROTHIAZIDE 25 MG TAB PO ONE (14:15)
--- NOTE | 2017-06-22 14:36 | PD ---
HPI Chief Complaint: Dizziness Time Seen by Provider: 14:03 Travel History International Travel<30 days: No Contact w/Intl Traveler<30days: No Traveled to known affect area: No History of Present Illness HPI 52yo F with PMH of HTN here with c/o elevated blood pressure and feeling dizzy. Said she ran out of her blood pressure medication which includes clonidine 0.1mg TID, hydrochlorothiazide 25mg daily, and amlodipine 10mg daily for 1 week. Said she also has a slight bilateral temporal headache since yesterday. Had headaches before when her blood pressure was high and had headache that resolved with fioricet before. Denies any fever, neck pain, n/v, abdominal pain , new focal weakness or numbness. Pt said she has decreased sensation in left arm and leg for years. Also has chronic back pain and follows with pain management Dr. Dueñas and takes percocet for pain. PFSH Past Medical History Hx Anticoagulant Therapy: No Arthritis: Yes Asthma: Yes Autoimmune Disease: No Anxiety: No Depression: No Cancer: No Cardiovascular Problems: Yes (htn on meds been out ) High Cholesterol: Yes Diabetes: Yes Diminished Hearing: No Gastrointestinal Disorders: Yes (laxatives) GERD: Yes Glaucoma: Yes Genitourinary: Yes (cystoscopy, ) Herniated Disk: Yes (TWO LOWER BACK, ONE IN NECK) Hypertension: Yes Musculoskeletal: Yes (pain management doctor) Neurologic: No Psychiatric: No Reproductive: Yes (ovary cyst) Respiratory: Yes Immunizations Current: Yes Migraines: Yes Sleep Apnea: Yes (sleep apnea+ bipap) Thyroid Disease: No ?: Not Menopausal: Yes : 3 Para: 2 Miscarriage: 1 Ovarian Cysts: Yes Dilation and Curettage (D&C): Yes Past Surgical History Abdominal Surgery: Yes (csection x 2) Cardiac Surgery: No Section: Yes (X2) Neurologic Surgery: Yes (spinal tap) Thoracic Surgery: No Other Surgery: Yes (csection x2) Social History Alcohol Use: No Tobacco Use: No Substance Use: No Allergies-Medications (Allergen,Severity, Reaction): Coded Allergies: labetalol (Unverified Allergy, Severe, BREATHING/THROAT SWELLS, 06/22/17) Reported Meds & Prescriptions Reported Meds & Active Scripts Active Clonidine (Clonidine HCl) 0.1 Mg Tab 0.1 Mg PO TID 30 Days Metformin (Metformin HCl) 500 Mg Tab 500 Mg PO BIDPC Amlodipine (Amlodipine Besylate) 10 Mg Tab 10 Mg PO DAILY Robaxin (Methocarbamol) 500 Mg Tab 500 Mg PO BID Hydrochlorothiazide 25 Mg Tab 25 Mg PO DAILY Gabapentin 800 Mg Tab 600 Mg PO TID Percocet (Oxycodone-Acetaminophen) 10-325 mg Tab 1 Tab PO Q4H PRN Reported Ibuprofen 600 Mg Tab 600 Mg PO Q8H PRN Review of Systems Except as stated in HPI: all other systems reviewed are Neg Physical Exam Narrative GENERAL: 52yo F not in distress. SKIN: Focused skin assessment warm/dry. HEAD: Atraumatic. Normocephalic. EYES: Pupils equal and round 3mm bilaterally. EOMI. ENT: No nasal bleeding or discharge. Mucous membranes pink and moist. NECK: Trachea midline. No JVD. CARDIOVASCULAR: Regular rate and rhythm. No murmur appreciated. RESPIRATORY: No accessory muscle use. Clear to auscultation. Breath sounds equal bilaterally. GASTROINTESTINAL: Abdomen soft, non-tender, nondistended. MUSCULOSKELETAL: No obvious deformities. No clubbing. No cyanosis. No edema. NEUROLOGICAL: Awake and alert. No obvious cranial nerve deficits. Motor grossly within normal limits in all extremities. Decreased sensation in left arm and leg which are not new. Normal speech. PSYCHIATRIC: Appropriate mood and affect; insight and judgment normal. Data Data Last Documented VS Vital Signs Date Time Temp Pulse Resp B/P (MAP) Pulse Ox O2 Delivery O2 Flow Rate FiO2 06/22/17 18:00 167/82 (110) 06/22/17 17:03 69 18 100 Room Air 06/22/17 13:[address] Brain W/O Iv Contrast(Rout) (06/22/17 ) Complete Blood Count With Diff (06/22/17 14:14) Basic Metabolic Panel (Bmp) (06/22/17 14:14) Prothrombin Time / Inr (Pt) (06/22/17 14:14) Act Partial Throm Time (Ptt) (06/22/17 14:14) Troponin I (06/22/17 14:14) Electrocardiogram (06/22/17 ) Clonidine (Catapres) (06/22/17 14:15) Hydrochlorothiazide (Hydrodiuril) (06/22/17 14:15) Amlodipine (Norvasc) (06/22/17 14:15) Acetaminophen (Tylenol) (06/22/17 15:45) Hydralazine Inj (Apresoline Inj) (06/22/17 17:30) Ampe-Uqgqh-Zxue 325-50-40 Mg (Fioricet 3 (06/22/17 18:45) Labs Laboratory Tests Test 06/22/17 14:45 White Blood Count 4.9 TH/MM3 Red Blood Count 4.33 MIL/MM3 Hemoglobin 11.8 GM/DL Hematocrit 36.9 % Mean Corpuscular Volume 85.2 FL Mean Corpuscular Hemoglobin 27.1 PG Mean Corpuscular Hemoglobin Concent 31.9 % Red Cell Distribution Width 13.4 % Platelet Count 335 TH/MM3 Mean Platelet Volume 7.3 FL Neutrophils (%) (Auto) 63.3 % Lymphocytes (%) (Auto) 22.7 % Monocytes (%) (Auto) 6.2 % Eosinophils (%) (Auto) 5.4 % Basophils (%) (Auto) 2.4 % Neutrophils # (Auto) 3.1 TH/MM3 Lymphocytes # (Auto) 1.1 TH/MM3 Monocytes # (Auto) 0.3 TH/MM3 Eosinophils # (Auto) 0.3 TH/MM3 Basophils # (Auto) 0.1 TH/MM3 CBC Comment DIFF FINAL Differential Comment Prothrombin Time 10.4 SEC Prothromb Time International Ratio 1.0 RATIO Activated Partial Thromboplast Time 25.3 SEC Blood Urea Nitrogen 18 MG/DL Creatinine 1.10 MG/DL Random Glucose 157 MG/DL Calcium Level 8.4 MG/DL Sodium Level 140 MEQ/L Potassium Level 3.8 MEQ/L Chloride Level 103 MEQ/L Carbon Dioxide Level 29.5 MEQ/L Anion Gap 8 MEQ/L Estimat Glomerular Filtration Rate 63 ML/MIN Troponin I LESS THAN 0.02 NG/ML MDM Medical Decision Making Medical Screen Exam Complete: Yes Emergency Medical Condition: Yes Interpretation(s) EKG: Sinus bradycardia at 59bpm. LAD. Biphasic T wave V4, V5. TWI III, aVF. Differential Diagnosis Hypertensive emergency vs. uncontrolled HTN secondary to noncompliance vs. sinus headache vs. migraine headache Narrative Course 52yo F with elevated blood pressure secondary to noncompliance. BP was 217/ 126. Pt given her normal blood pressure medications clonidine, hydrochlorothiazide, and amlodipine. Repeat BP improved to 195/101. Labs reviewed, no leukocytosis. H/H normal. Creatinine 1.10. Troponin negative. Pt last took her percocet at 9am today. CT brain normal. Pt given 1 fioricet as that was what helped her with her headache last time. BP after her oral meds and hydralazine is now 167/87. Pt reevaluated at bedside and is feeling much better. Denies any headache or dizziness. Pt has nasal congestion and wants something for it so will prescribe flonase. Pt has no HTN medications so will prescribe 2 weeks of her blood pressure medication and have pt follow up with PMD. Return precautions given. Diagnosis Primary Impression: Elevated blood pressure reading Patient Instructions: General Instructions Departure Forms: Tests/Procedures Additional Instructions: Please follow up with your primary care physician in 1-2 days. Return to the ED if symptoms worsen. Med/Other Pt SpecificInfo: Prescription(s) given Scripts Fluticasone Nasal Mobile (Flonase Nasal Mobile) 50 Mcg/Act Mobile 50 MCG EACH NARE BID for Allergies, #1 BOTTLE 0 Refills Prov: Natasha Cornejo DO 06/22/17 Amlodipine (Amlodipine) 10 Mg Tab 10 MG PO DAILY for Blood Pressure Management for 14 Days, #14 TAB 0 Refills Prov: Natasha Cornejo DO 06/22/17 Hydrochlorothiazide (Hydrochlorothiazide) 25 Mg Tab 25 MG PO DAILY for 14 Days, #14 TAB 0 Refills Prov: Natasha Cornejo DO 06/22/17 Clonidine (Clonidine) 0.1 Mg Tab 0.1 MG PO BID for Blood Pressure Management for 14 Days, #28 TAB 0 Refills Prov: Natasha Cornejo DO 06/22/17 Disposition: 01 DISCHARGE HOME Condition: Stable Natasha Cornejo DO Jun 22, 2017 14:36
[2017-06-22 14:57] LABS: AUTOMATED NEUTROPHIL # 3.1 TH/MM3 (1.8-7.7); BASOPHIL # 0.1 TH/MM3 (0-0.2); BASOPHIL % 2.4 % (0.0-2.0); EOSINOPHIL # 0.3 TH/MM3 (0-0.4); EOSINOPHIL % 5.4 % (0.0-4.0); HEMATOCRIT 36.9 % (35.0-46.0); HEMOGLOBIN 11.8 GM/DL (11.6-15.3); LYMPH % 22.7 % (9.0-44.0); LYMPHOCYTE # 1.1 TH/MM3 (1.0-4.8); MEAN CELL VOLUME 85.2 FL (80.0-100.0); MEAN CORPUSCULAR HEMOGLOBIN 27.1 PG (27.0-34.0); MEAN CORPUSCULAR HGB CONC 31.9 % (32.0-36.0); MEAN PLATELET VOLUME 7.3 FL (7.0-11.0); MONO % 6.2 % (0.0-8.0); MONOCYTE # 0.3 TH/MM3 (0-0.9); NEUT % 63.3 % (16.0-70.0); PLATELET COUNT 335 TH/MM3 (150-450); RED BLOOD COUNT 4.33 MIL/MM3 (4.00-5.30); RED CELL DISTRIBUTION WIDTH 13.4 % (11.6-17.2); WHITE BLOOD COUNT 4.9 TH/MM3 (4.0-11.0)
[2017-06-22 15:05] LABS: CHLORIDE 103 MEQ/L (98-107); SODIUM (NA) 140 MEQ/L (136-145)
[2017-06-22 15:07] LABS: CALCIUM 8.4 MG/DL (8.5-10.1)
[2017-06-22 15:08] LABS: BICARBONATE 29.5 MEQ/L (21.0-32.0); BLOOD UREA NITROGEN 18 MG/DL (7-18); GLUCOSE,RANDOM 157 MG/DL (74-106)
[2017-06-22 15:09] LABS: PROTHROMBIN TIME - PATIENT 10.4 SEC (9.8-11.6)
[2017-06-22 15:11] LABS: GLOMERULAR FILTRATION RATE 63 ML/MIN (>89)
[2017-06-22 15:16] LABS: TROPONIN I LESS THAN 0.02 NG/ML (0.02-0.05)
[2017-06-22] MEDS ORDERED: ACETAMINOPHEN 325 MG TAB PO ONE (15:45)
--- NOTE | 2017-06-22 16:34 | RADRPT ---
EXAM DATE/TIME: 06/22/2017 16:22 [facility] COMPARISON: CT BRAIN W/O CONTRAST, March 29, 2017, 21:15. INDICATIONS : Cephalgia. Dizziness. Weakness. RADIATION DOSE: 66.19 CTDIvol (mGy) MEDICAL HISTORY : Gastroesophageal reflux disease. Diabetes mellitus type 2. Hypertension. SURGICAL HISTORY : section. ENCOUNTER: Initial ACUITY: 1 week PAIN SCALE: 10/10 LOCATION: cranial TECHNIQUE: Multiple contiguous axial images were obtained of the head. Using automated exposure control and adj ustment of the mA and/or kV according to patient size, radiation dose was kept as low as reasonably a chievable to obtain optimal diagnostic quality images. DICOM format image data is available electro nically for review and comparison. FINDINGS: CEREBRUM: The ventricles are normal for age. No evidence of midline shift, mass lesion, hemorrhage or acute in farction. No extra-axial fluid collections are seen. POSTERIOR FOSSA: The cerebellum and brainstem are intact. The 4th ventricle is midline. The cerebellopontine angle i s unremarkable. EXTRACRANIAL: The visualized portion of the orbits is intact. SKULL: The calvaria is intact. No evidence of skull fracture. CONCLUSION: Normal examination for a patient of this age. No significant change has occurred. Andrew Jenkins MD on June 22, 2017 at 16:31 Board Certified Radiologist. This report was verified electronically.
[2017-06-22] MEDS ORDERED: hydrALAZINE HCL 20 MG/ML VIAL IV PUSH ONE (17:30)
[2017-06-22] MEDS ORDERED: ACETAMIN 325 MG/BUTALBITAL 50 MG/CAFFEINE 40 MG TAB PO ONE (18:45)
[2017-06-22] MEDS ORDERED: FLUT1SPR5 EACH NARE (18:51)
[2017-06-22] MEDS ORDERED: HYDR25TA5 PO (18:51)
[2017-06-22] MEDS ORDERED: CLON0.1T PO (18:51)
[2017-06-22] MEDS ORDERED: AMLO10TA2 PO (18:51)
--- NOTE | 2017-06-23 00:02 | EKG ---
Date Performed: 06/22/2017 Time Performed: 14:23:28 PTAGE: 52 years EKG: SINUS BRADYCARDIA BORDERLINE LEFT AXIS DEVIATION NONSPECIFIC T-WAVE ABNORMALITY BORDERLINE ECG PREVIOUS TRACING : 03/30/2017 02.46 Compared to prior tracing, now sinus bradycardia DOCTOR: Irving Rodriguez Interpretating Date/Time 06/23/2017 00:00:03
== END 2017-06-22 19:12 | disposition home or self-care (01) ==
LOC: PHED 13:46
DX: I10 Essential (primary) hypertension (principal); E78.00 Pure hypercholesterolemia, unspecified; E11.9 Type 2 diabetes mellitus without complications; R00.1 Bradycardia, unspecified; J45.909 Unspecified asthma, uncomplicated; M19.90 Unspecified osteoarthritis, unspecified site; Z91.14 Patient's other noncompliance with medication regimen; Z88.8 Allergy status to other drugs, medicaments and biological substances; Z79.84 Long term (current) use of oral hypoglycemic drugs; Z79.899 Other long term (current) drug therapy
CPT/HCPCS: 70450; 80048; 84484; 85025; 85610; 85730; 93005; 96374; 99285; J0360

== ENCOUNTER 2017-07-12 01:05 | Inpatient (IN) | payer BC, OTHER ==
[~2017-07-12] VITALS: Ht 162.6 cm; Wt 112.4 kg
[2017-07-12] VITALS (19 sets, daily range): BP systolic 113–234; BP diastolic 58–114; PULSE 62–129; RESP 16–24; TEMP 97.7–98.9; O2SAT 97–99
[~2017-07-12 01:05] MED LIST changes: +FLUT1SPR5 EACH NARE
[2017-07-12] MEDS ORDERED: ONDANSETRON HCL 4 MG/2 ML VIAL IV PUSH ONE ×2 (01:45→02:30)
[2017-07-12] MEDS ORDERED: NITROGLYCERIN 0.4 MG SL 25 TABS/BTL SL PRN (01:45)
[2017-07-12] MEDS ORDERED: hydrALAZINE HCL 20 MG/ML VIAL IV PUSH ONE ×2 (01:45→04:15)
[2017-07-12] MEDS ORDERED: NITROGLYCERIN 2% OINT 1 GM PACKET TOPICAL ONE (01:45)
--- NOTE | 2017-07-12 01:51 | PD ---
HPI Chief Complaint: Chest Pain Time Seen by Provider: 01:23 Travel History International Travel<30 days: No Contact w/Intl Traveler<30days: No Traveled to known affect area: No History of Present Illness HPI The patient is a 52 year old female who presents to the [facility] emergency department with a history of chest pain, back pain, vomiting, and diarrhea that all began between 5 and 8 PM today. She has also had cough and congestion for the last 2 weeks. Her cough is productive of white mucus. She has had diarrhea 5 since onset, vomiting 10 today. 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 The patient additionally reports that she ran out of her blood pressure medication on Monday , yesterday. She denies having any headache or neck pain. She denies having any one-sided weakness, slurred speech, facial droop, difficulty with word finding ability, or numbness or tingling to her extremities. On review of systems otherwise, she denies having any known fevers, headache, shortness of breath, abdominal pain, urinary symptoms, or neurologic symptoms. The patient denies any prior history of myocardial infarction, congestive heart failure, DVT , or PE. LMP: 5 months ago. PFSH Past Medical History Narrative Medical The patient's past medical history is significant for chronic back pain on chronic opiates through pain management, history of hypertension with medication noncompliance, history of glaucoma, history of pseudotumor cerebri, prolapsed bladder. Hx Anticoagulant Therapy: No Arthritis: Yes Asthma: Yes Autoimmune Disease: No Anxiety: No Depression: No Cancer: No Cardiovascular Problems: Yes (htn on meds been out ) High Cholesterol: Yes Chest Pain: Yes Cerebrovascular Accident: Yes Diabetes: Yes Patient Takes Glucophage: Yes (06/15/17) Diminished Hearing: No Gastrointestinal Disorders: Yes (laxatives) GERD: Yes Glaucoma: Yes Genitourinary: Yes (cystoscopy, ) Herniated Disk: Yes (TWO LOWER BACK, ONE IN NECK) Hypertension: Yes Musculoskeletal: Yes (pain management doctor) Neurologic: No Psychiatric: No Reproductive: Yes (ovary cyst) Respiratory: Yes Immunizations Current: Yes Migraines: Yes Sleep Apnea: Yes Thyroid Disease: No Tetanus Vaccination: < 5 Years ?: Not Menopausal: Yes : 3 Para: 2 Miscarriage: 1 Ovarian Cysts: Yes Dilation and Curettage (D&C): Yes Past Surgical History Narrative Surgical The patient's past surgical history is significant for 2, D&C, history of lumbar puncture Abdominal Surgery: Yes (csection x 2) Cardiac Surgery: No Section: Yes (X2) Neurologic Surgery: Yes (spinal tap) Thoracic Surgery: No Other Surgery: Yes (EGD, colonoscopy ) Social History Alcohol Use: No Tobacco Use: No Substance Use: No Allergies-Medications (Allergen,Severity, Reaction): Coded Allergies: labetalol (Unverified Allergy, Severe, BREATHING/THROAT SWELLS, 07/12/17) Reported Meds & Prescriptions Reported Meds & Active Scripts Active Hydrochlorothiazide 25 Mg Tab 25 Mg PO DAILY 14 Days Clonidine (Clonidine HCl) 0.1 Mg Tab 0.1 Mg PO TID 30 Days Metformin (Metformin HCl) 500 Mg Tab 500 Mg PO BIDPC Amlodipine (Amlodipine Besylate) 10 Mg Tab 10 Mg PO DAILY Robaxin (Methocarbamol) 500 Mg Tab 500 Mg PO BID Gabapentin 800 Mg Tab 600 Mg PO TID Percocet (Oxycodone-Acetaminophen) 10-325 mg Tab 1 Tab PO Q4H PRN Reported Ibuprofen 600 Mg Tab 600 Mg PO Q8H PRN Review of Systems General / Constitutional: No: Fever Eyes: No: Visual changes HENT: Positive: Congestion, No: Headaches Cardiovascular: Positive: Chest Pain or Discomfort Respiratory: Positive: Cough, No: Shortness of Breath Gastrointestinal: Positive: Nausea, Vomiting, No: Abdominal Pain Genitourinary: No: Dysuria Musculoskeletal: No: Pain Skin: No Rash Neurologic: No: Weakness Psychiatric: No: Depression Endocrine: No: Polydipsia Hematologic/Lymphatic: No: Easy Bruising Physical Exam Narrative General: The patient is a well-developed well-nourished female in no acute distress. Head and Neck exam: Head is normocephalic atraumatic. Eyes: EOMI, pupils are equal round and reactive to light. Nose: Midline septum with pink mucous membranes Mouth: Dentition unremarkable. Moist mucus membranes. Posterior oropharynx is not erythematous. No tonsillar hypertrophy. Uvula midline. Airway patent. Neck: No palpable lymphadenopathy. No nuchal rigidity. No thyromegaly. Cardiovascular: Sinus tachycardia in the low 100 without murmurs, gallops, or rubs. No pulse deficit to the extremities on simultaneous auscultation and palpation of her radial artery. Lungs: Clear to auscultation bilaterally. No wheezes, rhonchi, or rales. Abdomen: Soft, without tenderness to palpation in all 4 quadrants of the abdomen. No guarding, rebound, or rigidity. Normal bowel sounds are audible. No tenderness on palpation of McBurney's point. Negative Acosta sign. Extremities: No clubbing, cyanosis, or edema. 2+ pulses in all 4 extremities. No calf tenderness on palpation. Back: No costovertebral angle tenderness to palpation. Neurologic Exam: Grossly nonfocal Skin Exam: No rash noted. Intact skin that is warm and dry. Data Data Last Documented VS Vital Signs Date Time Temp Pulse Resp B/P (MAP) Pulse Ox O2 Delivery O2 Flow Rate FiO2 07/12/17 03:15 89 18 183/98 (126) 98 Room Air 07/12/17 01:20 98.7 Orders Orders Electrocardiogram (07/12/17 ) Electrocardiogram (07/12/17 01:39) Complete Blood Count With Diff (07/12/17 01:39) Comprehensive Metabolic Panel (07/12/17 01:39) Creatine Kinase (Cpk) (07/12/17:39) Ckmb (Isoenzyme) Profile (07/12/17 01:39) Troponin I (07/12/17 01:39) B-Type Natriuretic Peptide (07/12/17 01:39) Prothrombin Time / Inr (Pt) (07/12/17:39) Act Partial Throm Time (Ptt) (07/12/17 01:39) Lipase (07/12/17 01:39) Urinalysis - C+S If Indicated (07/12/17 01:39) Magnesium (Mg) (07/12/17 01:39) Chest, Single Ap (07/12/17:39) Iv Access Insert/Monitor (07/12/17 01:39) Ecg Monitoring (07/12/17:39) Oximetry (07/12/17 01:39) Ed Urine Pregnancytest Poc (07/12/17 01:39) Drug Screen, Random Urine (07/12/17 01:39) Alcohol (Ethanol) (07/12/17 01:39) Hydralazine Inj (Apresoline Inj) (07/12/17 01:45) Ondansetron Inj (Zofran Inj) (07/12/17 01:45) Nitroglycerin 2% Oint (Nitroglycerin 2% (07/12/17 01:45) Nitroglycerin Sl (Nitrostat Sl) (07/12/17 01:45) Morphine Inj (Morphine Inj) (07/12/17 02:30) Ondansetron Inj (Zofran Inj) (07/12/17 02:30) Sodium Chlorid 0.9% 500 Ml Inj (Ns 500 M (07/12/17 03:45) Potassium Chloride Eff (K-Lyte Cl Eff) (07/12/17 03:45) Admit Order (Ed Use Only) (07/12/17 04:12) Hydralazine Inj (Apresoline Inj) (07/12/17 04:15) Labs Laboratory Tests Test 07/12/17 02:10 07/12/17 02:30 07/12/17 03:00 Urine Color YELLOW Urine Turbidity CLEAR Urine pH 6.5 Urine Specific Hudson 1.016 Urine Protein 100 mg/dL Urine Glucose (UA) TRACE mg/dL Urine Ketones NEG mg/dL Urine Occult Blood TRACE Urine Nitrite NEG Urine Bilirubin NEG Urine Urobilinogen LESS THAN 2.0 MG/DL Urine Leukocyte Esterase TRACE Urine RBC 4 /hpf Urine WBC LESS THAN 1 /hpf Urine Squamous Epithelial Cells 3 /hpf Urine Bacteria FEW /hpf Urine Mucus FEW /lpf Microscopic Urinalysis Comment CULT NOT INDICATED Urine Opiates Screen NEG Urine Barbiturates Screen NEG Urine Amphetamines Screen NEG Urine Benzodiazepines Screen NEG Urine Cocaine Screen NEG Urine Cannabinoids Screen NEG Blood Urea Nitrogen 15 MG/DL Creatinine 1.09 MG/DL Random Glucose 236 MG/DL Total Protein 8.4 GM/DL Albumin 3.9 GM/DL Calcium Level 9.4 MG/DL Magnesium Level 1.8 MG/DL Alkaline Phosphatase 86 U/L Aspartate Amino Transf (AST/SGOT) 12 U/L Alanine Aminotransferase (ALT/SGPT) 17 U/L Total Bilirubin 0.7 MG/DL Sodium Level 140 MEQ/L Potassium Level 3.0 MEQ/L Chloride Level 102 MEQ/L Carbon Dioxide Level 28.9 MEQ/L Anion Gap 9 MEQ/L Estimat Glomerular Filtration Rate 64 ML/MIN Total Creatine Kinase 94 U/L Troponin I LESS THAN 0.02 NG/ML Lipase 107 U/L Ethyl Alcohol Level LESS THAN 3 MG/DL White Blood Count 15.2 TH/MM3 Red Blood Count 4.78 MIL/MM3 Hemoglobin 13.3 GM/DL Hematocrit 40.5 % Mean Corpuscular Volume 84.8 FL Mean Corpuscular Hemoglobin 27.7 PG Mean Corpuscular Hemoglobin Concent 32.7 % Red Cell Distribution Width 13.6 % Platelet Count 376 TH/MM3 Mean Platelet Volume 7.6 FL CBC Comment AUTO DIFF Differential Total Cells Counted 100 Neutrophils % (Manual) 94 % Lymphocytes % 4 % Monocytes % 2 % Neutrophils # (Manual) 14.3 TH/MM3 Differential Comment FINAL DIFF MANUAL Platelet Estimate HIGH Platelet Morphology Comment NORMAL Red Cell Morphology Comment NORMAL Prothrombin Time 10.7 SEC Prothromb Time International Ratio 1.1 RATIO Activated Partial Thromboplast Time 19.1 SEC B-Type Natriuretic Peptide 3 PG/ML MDM Medical Decision Making Medical Screen Exam Complete: Yes Emergency Medical Condition: Yes Medical Record Reviewed: Yes Interpretation(s) Last Impressions Chest X-Ray 07/12/17 0139 Signed Impressions: Service Date/Time: Wednesday, July 12, 2017 01:49 - CONCLUSION: No acute disease. Nilson Reed MD Differential Diagnosis Acute coronary syndrome, versus hypertensive emergency, versus opiate withdrawal syndrome, versus electrolyte derangements, versus dehydration, versus pancreatitis Narrative Course During the course of the patient's emergency department visit, the patient's history, examination, and differential diagnosis were reviewed with the patient. The patient was placed on a youth nutritional monitor with oximetry and frequent blood pressure monitoring. The patient had IV access obtained and blood work sent for analysis. The patient had an EKG done on arrival that shows a sinus rhythm of 93, QRS duration is 89 ms, QTC [address] segment elevation is noted. The patient was initially provided nitroglycerin sublingual every 5 minutes 3, nitroglycerin 1 inch the chest wall, Zofran 4 mg IV, morphine for pain. The patient was started on normal saline 500 mL bolus. The patient was given hydralazine 10 mg IV in 2 separate doses per The patient's laboratory studies were reviewed and remarkable for a white count of 15.2, hemoglobin 13.3, platelets 376 with 94 neutrophils, lymphocytes 4, CMP is remarkable for potassium of 3.0 which was supplemented orally, however the patient did vomit. Had a 1.09, glucose 236, AST 12, cardiac enzymes within normal limits, BNP is 3, lipase 107. PT 10.7, PTT 19.1, urine drug screen negative, alcohol level less than 3, urinalysis shows 4 RBCs trace leukocyte esterase, culture not indicated. Radiology studies were reviewed and remarkable for a chest x-ray that showed no acute abnormality. The patient was reexamined and had just been given p.o. potassium and vomited again. The patient's blood pressure had improved, however after vomiting blood pressure increased again. The patient was given a second dose of hydralazine IV. The patient will be admitted for intractable vomiting, uncontrolled hypertension, hypokalemia, and chest pain rule out myocardial infarction. The patient's case was discussed with the family practice resident, Dr. Pascual Hudson. The patient has an appointment with him scheduled for . He did agree to admit the patient for continued evaluation and treatment. The patient's results were discussed with the patient, including the plan of care. I explained that further testing and/ or monitoring is indicated based on the patient's history, examination, and/ or laboratory findings. Therefore, I recommended admission for additional evaluation. The patient expressed understanding and was agreeable with this plan. The patient was admitted to the hospital in stable condition and sent to a bed under the care of the family practice residents. Physician Communication Physician Communication The patient's case including history, pertinent physical examination findings, and laboratory studies were discussed with []. It was agreed that the patient would be admitted to the [] hospitalist service. Diagnosis Primary Impression: Chest pain, rule out acute myocardial infarction Additional Impressions: Nausea, vomiting, and diarrhea Hypokalemia Hypertension Qualified Codes: I10 - Essential (primary) hypertension Admitting Information Admitting Physician Requests: Admit Isabel Owens MD Jul 12, 2017 01:51
--- NOTE | 2017-07-12 02:00 | RADRPT ---
EXAM DATE/TIME: 07/12/2017 01:49 [facility] COMPARISON: No previous studies available for comparison. INDICATIONS : Short of breath pain in chest and back. MEDICAL HISTORY : None. SURGICAL HISTORY : None. ENCOUNTER: Initial ACUITY: 1 day PAIN SCORE: 3/10 LOCATION: Bilateral chest FINDINGS: A single view of the chest demonstrates the lungs to be symmetrically aerated without evidence of mas s, infiltrate or effusion. The cardiomediastinal contours are unremarkable. Osseous structures are intact. CONCLUSION: No acute disease. Nilson Reed MD on July 12, 2017 at 1:58 Board Certified Radiologist. This report was verified electronically.
[2017-07-12 02:17] LABS: BACTERIA, URINE FEW /hpf; BILIRUBIN, URINE NEG (NEG); BLOOD, URINE TRACE (NEG); GLUCOSE,URINE TRACE mg/dL (NEG); KETONE, URINE NEG (NEG); MUCUS URINE FEW /lpf (OCC); NITRITE,URINE NEG (NEG); PH, URINE 6.5 (5.0-8.5); SQUAMOUS EPITHELIAL CELL URINE 3 /hpf (0-5); URINE COLOR YELLOW (YELLW/STRAW); URINE LEUKOCYTE ESTERASE TRACE (NEG)
[2017-07-12] MEDS ORDERED: MORPHINE SULFATE 4 MG/ML INJ IV PUSH ONE (02:30)
[2017-07-12 02:56] LABS: ALBUMIN 3.9 GM/DL (3.4-5.0); ALT (GPT) 17 U/L (10-53); AST (GOT) 12 U/L (15-37); BICARBONATE 28.9 MEQ/L (21.0-32.0); BLOOD UREA NITROGEN 15 MG/DL (7-18); CALCIUM 9.4 MG/DL (8.5-10.1); CHLORIDE 102 MEQ/L (98-107); CREATININE 1.09 MG/DL (0.50-1.00); GLOMERULAR FILTRATION RATE 64 ML/MIN (>89); GLUCOSE,RANDOM 236 MG/DL (74-106); MAGNESIUM 1.8 MG/DL (1.5-2.5); SODIUM (NA) 140 MEQ/L (136-145)
[2017-07-12 02:59] LABS: ALKALINE PHOSPHATASE 86 U/L (45-117); TOTAL BILIRUBIN ADULT 0.7 MG/DL (0.2-1.0); TOTAL PROTEIN 8.4 GM/DL (6.4-8.2); TROPONIN I LESS THAN 0.02 NG/ML (0.02-0.05)
[2017-07-12 03:14] LABS: HEMATOCRIT 40.5 % (35.0-46.0); HEMOGLOBIN 13.3 GM/DL (11.6-15.3); MEAN CELL VOLUME 84.8 FL (80.0-100.0); MEAN CORPUSCULAR HEMOGLOBIN 27.7 PG (27.0-34.0); MEAN CORPUSCULAR HGB CONC 32.7 % (32.0-36.0); MEAN PLATELET VOLUME 7.6 FL (7.0-11.0); PLATELET COUNT 376 TH/MM3 (150-450); RED BLOOD COUNT 4.78 MIL/MM3 (4.00-5.30); RED CELL DISTRIBUTION WIDTH 13.6 % (11.6-17.2); WHITE BLOOD COUNT 15.2 TH/MM3 (4.0-11.0)
[2017-07-12 03:27] LABS: INTERNATIONAL NORMALIZED RATIO 1.1 RATIO; PROTHROMBIN TIME - PATIENT 10.7 SEC (9.8-11.6)
[2017-07-12] MEDS ORDERED: POTASSIUM CHLORIDE 25 MEQ EFFERVESCENT TAB PO ONE (03:45)
[2017-07-12] MEDS ORDERED: SODIUM CHLORID 0.9% 500 ML INJ 500 ML IV ONE (03:45)
[2017-07-12 04:03] LABS: LYMPHOCYTES 4 % (9-44); MONOCYTES 2 % (0-8); NEUTROPHIL # MANUAL DIFF 14.3 TH/MM3 (1.8-7.7); POLYS (SEG NEUTROPHILS) 94 % (16-70)
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
[2017-07-12] MEDS ORDERED: SODIUM CHLORIDE 0.9% FLUSH 10 ML FLUSH IV FLUSH PRN (05:45)
[2017-07-12] MEDS ORDERED: NALOXONE HCL 0.4 MG/ML AMP IV PUSH PRN (05:45)
[2017-07-12] MEDS ORDERED: LACTULOSE SYRUP 20 GM/30 ML CUP PO PRN (05:45)
[2017-07-12] MEDS ORDERED: BISACODYL 10 MG SUPP RECTAL PRN (05:45)
[2017-07-12] MEDS ORDERED: MAGNESIUM HYDROXIDE SUSP 30 ML CUP PO PRN (05:45)
[2017-07-12] MEDS ORDERED: ONDANSETRON HCL 4 MG/2 ML VIAL IVP PRN (05:45)
[2017-07-12] MEDS ORDERED: SENNOSIDES 8.6 MG TAB PO PRN (05:45)
[2017-07-12] MEDS ORDERED: hydrALAZINE HCL 20 MG/ML VIAL IV PUSH PRN (06:15)
[2017-07-12] MEDS: oxyCODONE/ACETAMINOPHEN 10 MG/325 MG TAB PO SCH ×3 (06:32→21:46)
[2017-07-12] MEDS: MORPHINE SULFATE 4 MG/ML INJ IV PUSH PRN ×3 (06:33→18:30)
[2017-07-12] MEDS: NS + KCL 20 MEQ INJ 1,000 ML IV SCH ×4 (06:33→23:16)
[2017-07-12] MEDS: SODIUM CHLORIDE 0.9% FLUSH 10 ML FLUSH IV FLUSH SCH ×2 (07:57→21:00)
[2017-07-12] MEDS: PANTOPRAZOLE SODIUM 40 MG VIAL IV PUSH SCH ×2 (07:57→21:46)
[2017-07-12] MEDS: GABAPENTIN 300 MG CAP PO SCH ×3 (07:57→17:52)
[2017-07-12] MEDS: HYDROCHLOROTHIAZIDE 25 MG TAB PO SCH (07:58)
[2017-07-12] MEDS: cloNIDine HCL 0.1 MG TAB PO SCH ×3 (07:58→17:52)
[2017-07-12] MEDS: METHOCARBAMOL 500 MG TAB PO SCH ×2 (07:58→21:45)
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
[2017-07-12] MEDS ORDERED: ENALAPRILAT 1.25 MG/ML VIAL IV PUSH ONE (10:15)
[2017-07-12] MEDS ORDERED: ENALAPRILAT 1.25 MG/ML VIAL IV PUSH PRN (10:15)
[2017-07-12 10:20] LABS: TROPONIN I LESS THAN 0.02 NG/ML (0.02-0.05)
[2017-07-12] MEDS ORDERED: DIATRIZOATE MEGLUM/DIATRIZOATE SOD 9 ML CUP ONE (10:48)
[2017-07-12] MEDS: DOCUSATE SODIUM 50 MG/SENNA 8.6 MG TAB PO SCH ×2 (11:01→21:00)
[2017-07-12] MEDS ORDERED: DIATRIZOATE MEGLUM/DIATRIZOATE SOD 9 ML CUP PO ONE (11:30)
[2017-07-12 14:03] LABS: HEMATOCRIT 35.9 % (35.0-46.0); HEMOGLOBIN 11.8 GM/DL (11.6-15.3)
--- NOTE | 2017-07-12 14:37 | RADRPT ---
EXAM DATE/TIME: 07/12/2017 12:43 [facility] COMPARISON: No previous studies available for comparison. INDICATIONS : Diffuse abdomen pain,nausea,vomiting,blood in stool ORAL CONTRAST: Prescribed oral contrast ingested. RADIATION DOSE: 24.03 CTDIvol (mGy) MEDICAL HISTORY : Hypertension. Asthma SURGICAL HISTORY : D&C ENCOUNTER: Initial ACUITY: 1 week PAIN SCALE: 7/10 LOCATION: Abdomen TECHNIQUE: Volumetric scanning of the abdomen and pelvis was performed. Using automated exposure control and ad justment of the mA and/or kV according to patient size, radiation dose was kept as low as reasonably achievable to obtain optimal diagnostic quality images. DICOM format image data is available electro nically for review and comparison. FINDINGS: LOWER LUNGS: Mild lung base atelectasis. LIVER: Homogeneous density without lesion. There is no dilation of the biliary tree. No calcified gallston es. SPLEEN: Normal size without lesion. PANCREAS: Within normal limits. KIDNEYS: Normal in size and shape. There is no mass, stone, or hydronephrosis. ADRENAL GLANDS: A 2.8 cm oblong mass is present in contiguous with the left adrenal gland. This is nonspecific by non contrast CT appearance. The right adrenal is unremarkable. VASCULAR: There is no aortic aneurysm. BOWEL/MESENTERY: Distal colonic diverticula. No abnormal dilatation, wall thickening or focal inflammatory change. ABDOMINAL WALL: Within normal limits. RETROPERITONEUM: There is no lymphadenopathy. BLADDER: No wall thickening or mass. REPRODUCTIVE: Within normal limits. INGUINAL: There is no lymphadenopathy or hernia. MUSCULOSKELETAL: Within normal limits for patient age. CONCLUSION: 2.8 cm left adrenal region mass. Further characterization with chemical shift MRI recommended. This c an be performed on an elective basis. No acute CT findings in the abdomen or pelvis. Jd Saravia MD on July 12, 2017 at 14:30 Board Certified Radiologist. This report was verified electronically.
[2017-07-12] MEDS ORDERED: PEG (High)/E-LYTE SOLN 4000 ML BTL PO ONE (16:00)
--- NOTE | 2017-07-12 16:48 | EKG ---
Date Performed: 07/12/2017 Time Performed: 09:06:35 PTAGE: 52 years EKG: Sinus rhythm MARKED LEFT AXIS DEVIATION NONSPECIFIC T-WAVE ABNORMALITY ABNORMAL ECG PREVIOUS TRACING : 07/12/2017 01.30 Since the previous tracing, no significant change noted DOCTOR: Ash Madrid Interpretating Date/Time 07/12/2017 16:47:01
[2017-07-12 21:58] LABS: HEMATOCRIT 33.1 % (35.0-46.0)
--- NOTE | 2017-07-12 22:34 | EKG ---
Date Performed: 07/12/2017 Time Performed: 01:30:25 PTAGE: 52 years EKG: Sinus rhythm MARKED LEFT AXIS DEVIATION NONSPECIFIC T-WAVE ABNORMALITY ABNORMAL ECG Compared to PREVIOUS TRACING , rate faster DOCTOR: Ash Madrid Interpretating Date/Time 07/12/2017 22:33:21
[2017-07-12 22:42] LABS: HEMOGLOBIN A1C 6.6 % (4.3-6.0)
--- NOTE | 2017-07-12 22:54 | HHI.FF ---
Face to Face Verification Diagnosis: (1) Anemia (2) Generalized weakness Physical Therapy Order: Evaluate and Treat I have seen patient Olive Coley on 07/12/17. My clinical findings support the need for the requested home health care services because: Patient has SOB Deconditioned w/ increased weakness Limited ability to care for self I certify that my clinical findings support that this patient is homebound because: Unsteady gait/balance Nicole Morel MD Jul 12, 2017 22:54
[2017-07-13] VITALS (10 sets, daily range): BP systolic 132–178; BP diastolic 75–106; PULSE 51–80; RESP 18; TEMP 98–98.8; O2SAT 96–100
[2017-07-13] MEDS: MORPHINE SULFATE 4 MG/ML INJ IV PUSH PRN ×2 (02:03→09:16)
[2017-07-13 03:28] LABS: AUTOMATED NEUTROPHIL # 6.4 TH/MM3 (1.8-7.7); BASOPHIL # 0.1 TH/MM3 (0-0.2); BASOPHIL % 0.7 % (0.0-2.0); EOSINOPHIL # 0.1 TH/MM3 (0-0.4); EOSINOPHIL % 0.9 % (0.0-4.0); HEMATOCRIT 34.8 % (35.0-46.0); HEMOGLOBIN 11.6 GM/DL (11.6-15.3); LYMPH % 24.5 % (9.0-44.0); LYMPHOCYTE # 2.3 TH/MM3 (1.0-4.8); MEAN CELL VOLUME 84.2 FL (80.0-100.0); MEAN CORPUSCULAR HEMOGLOBIN 28.1 PG (27.0-34.0); MEAN CORPUSCULAR HGB CONC 33.4 % (32.0-36.0); MEAN PLATELET VOLUME 7.9 FL (7.0-11.0); MONOCYTE # 0.6 TH/MM3 (0-0.9); NEUT % 67.9 % (16.0-70.0); PLATELET COUNT 339 TH/MM3 (150-450); RED BLOOD COUNT 4.14 MIL/MM3 (4.00-5.30); RED CELL DISTRIBUTION WIDTH 13.6 % (11.6-17.2); WHITE BLOOD COUNT 9.4 TH/MM3 (4.0-11.0)
[2017-07-13 03:57] LABS: ALBUMIN 3.4 GM/DL (3.4-5.0); ALKALINE PHOSPHATASE 82 U/L (45-117); ALT (GPT) 17 U/L (10-53); AST (GOT) 12 U/L (15-37); BICARBONATE 26.3 MEQ/L (21.0-32.0); BLOOD UREA NITROGEN 15 MG/DL (7-18); CALCIUM 8.9 MG/DL (8.5-10.1); CHLORIDE 105 MEQ/L (98-107); CREATININE 1.12 MG/DL (0.50-1.00); GLOMERULAR FILTRATION RATE 62 ML/MIN (>89); GLUCOSE,RANDOM 117 MG/DL (74-106); SODIUM (NA) 142 MEQ/L (136-145); TOTAL BILIRUBIN ADULT 1.2 MG/DL (0.2-1.0); TOTAL PROTEIN 7.4 GM/DL (6.4-8.2)
[2017-07-13] MEDS: NS + KCL 20 MEQ INJ 1,000 ML IV SCH ×2 (04:44→16:51)
[2017-07-13] MEDS: oxyCODONE/ACETAMINOPHEN 10 MG/325 MG TAB PO SCH (06:12)
[2017-07-13] MEDS: DOCUSATE SODIUM 50 MG/SENNA 8.6 MG TAB PO SCH (09:00)
[2017-07-13] MEDS: SODIUM CHLORIDE 0.9% FLUSH 10 ML FLUSH IV FLUSH SCH (09:09)
[2017-07-13] MEDS: METHOCARBAMOL 500 MG TAB PO SCH (09:10)
[2017-07-13] MEDS: GABAPENTIN 300 MG CAP PO SCH ×3 (09:10→17:01)
[2017-07-13] MEDS: HYDROCHLOROTHIAZIDE 25 MG TAB PO SCH (09:11)
[2017-07-13] MEDS: cloNIDine HCL 0.1 MG TAB PO SCH ×3 (09:11→17:01)
[2017-07-13] MEDS: PANTOPRAZOLE SODIUM 40 MG VIAL IV PUSH SCH (09:14)
[2017-07-13] MEDS ORDERED: LACTATED RINGER'S 1000 ML IV PRN (14:00)
[2017-07-13] MEDS ORDERED: POVIDONE IODINE 5% (ANTISEPSIS KIT) 4 APPLICATIONS EACH NARE PRN (14:00)
[2017-07-13] MEDS ORDERED: SODIUM CHLORID 0.9% 500 ML IV PRN (14:00)
[2017-07-13] MEDS ORDERED: CHLORHEXIDINE GLUCONATE 2 % 1 PACK (2 CLOTHS) TOPICAL PRN (14:00)
--- NOTE | 2017-07-13 15:31 | PD.PROCEDR ---
GI Procedure PROCEDURE PERFORMED EGD with biopsy followed by a colonoscopy with snare polypectomy INDICATION FOR PROCEDURE Epigastric pain, nausea vomiting, rectal bleeding, weight loss, PROCEDURE: The procedure, risks and benefits were discussed with Ms. Alejo and informed consent was obtained. Anesthesia sedated her with Diprivan. She was placed in the left lateral decubitus position. EGD: The Pentax videoscope was introduced through the oropharynx and advanced to the second portion of the duodenum under direct visualization. Retroflexion was performed in the stomach. FINDINGS: The esophagus this was normal Stomach there was patchy erythema in the antrum but no ulcerations no erosions no blood or bleeding the rest of the stomach was unremarkable antral biopsies were taken for further evaluation The duodenum this was normal Colonoscopy: The Pentax videoscope was introduced through the rectum and advanced to cecum where the ileocecal valve and appendiceal orifice were identified. Retroflexion was performed in the rectum. Colonic prep was good FINDINGS: Colonic withdrawal time greater than 6 minutes. As the scope was slowly withdrawn colonic mucosa was carefully inspected patient was noted to have 2 polyps in the descending colon both were pedunculated both were excised using cold snare technique and both were retrieved for further evaluation the patient was also noted to have mild diverticulosis scattered throughout the colon retroflexion in the rectum was unremarkable so is rectal examination ESTIMATED BLOOD LOSS: None SPECIMENS REMOVED: Antral biopsy and colon polyps COMPLICATIONS: None IMPRESSION: Mild gastritis Colon polyps Diverticulosis PLAN: Await biopsies High-fiber diet Monitor labs Colonoscopy in 5 years Continue with current supportive care Correct blood sugars Most likely etiology of pain nausea and vomiting his hyperglycemia Not much to add from a GI standpoint We will sign off Harjinder Cervantes MD Jul 13, 2017 15:31
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
[2017-07-13] MEDS ORDERED: ACETAMINOPHEN 500 MG CPLT PO PRN (15:45)
[2017-07-13] MEDS ORDERED: oxyCODONE/ACETAMINOPHEN 10 MG/325 MG TAB PO PRN (15:45)
[2017-07-13] MEDS ORDERED: HYDR25TA5 PO (15:54)
[2017-07-13] MEDS ORDERED: CLON0.1T PO (15:54)
[2017-07-13] MEDS ORDERED: AMLO10TA2 PO (15:54)
[2017-07-13] MEDS ORDERED: PERC10TA27 PO (15:54)
[2017-07-13] MEDS ORDERED: POTASSIUM CHLORIDE 20 MEQ CONTROLLED RELEASE TAB PO ONE (16:00)
[2017-07-13] MEDS ORDERED: ZANT150T2 PO (16:13)
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
[2017-07-14] MEDS ORDERED: ROBA500T PO (17:07)
== END 2017-07-13 19:00 | disposition home or self-care (01) | DRG 392 ==
LOC: NEPC 01:05 → NEDA 04:14 → N04A 14:02
PROVIDERS: ADMIT Family Medicine; ATTEND Family Medicine
PROC: 0DB78ZX Excision of Stomach, Pylorus, Via Natural or Artificial Opening Endoscopic, Diagnostic (ICD-10-PCS; principal; 2017-07-12)
PROC: 0DBM8ZX Excision of Descending Colon, Via Natural or Artificial Opening Endoscopic, Diagnostic (ICD-10-PCS; 2017-07-12)
PROC: 0DBM8ZX Excision of Descending Colon, Via Natural or Artificial Opening Endoscopic, Diagnostic (ICD-10-PCS; 2017-07-12)
DX: K29.70 Gastritis, unspecified, without bleeding (principal); Z68.41 Body mass index [BMI] 40.0-44.9, adult; I10 Essential (primary) hypertension; K92.1 Melena; F11.23 Opioid dependence with withdrawal; E27.9 Disorder of adrenal gland, unspecified; R07.9 Chest pain, unspecified; E87.6 Hypokalemia; I16.0 Hypertensive urgency; J45.909 Unspecified asthma, uncomplicated; G89.29 Other chronic pain; M54.5 Low back pain; E66.9 Obesity, unspecified; R63.4 Abnormal weight loss; K59.09 Other constipation; E86.0 Dehydration; K21.9 Gastro-esophageal reflux disease without esophagitis; K63.5 Polyp of colon; K57.90 Diverticulosis of intestine, part unspecified, without perforation or abscess without bleeding; R07.89 Other chest pain; E11.9 Type 2 diabetes mellitus without complications; E78.00 Pure hypercholesterolemia, unspecified; E78.5 Hyperlipidemia, unspecified; G47.30 Sleep apnea, unspecified; M19.90 Unspecified osteoarthritis, unspecified site; Z82.49 Family history of ischemic heart disease and other diseases of the circulatory system; Z91.410 Personal history of adult physical and sexual abuse; Z79.899 Other long term (current) drug therapy; Z86.73 Personal history of transient ischemic attack (TIA), and cerebral infarction without residual deficits
CPT/HCPCS: 71045; 74176; 80053; 80307; 81001; 82550; 83036; 83690; 83735; 83880; 84484; 84703; 85007; 85014; 85018; 85025; 85027; 85610; 85730; 88305; 88312; 93005; 96374; 96375; C9113; J0360; J2270; J2405; J3480; J7040; Q9963

== ENCOUNTER 2017-09-08 13:13 | Emergency (ER) | payer OTHER ==
[~2017-09-08 13:13] MED LIST changes: -FLUT1SPR5 EACH NARE; -IBUP-232 PO; +ZANT150T2 PO
[2017-09-08 13:58] VITALS: BP 195/105; PULSE 82; RESP 16; TEMP 98.6; O2SAT 96
[2017-09-08 15:51] LABS: AUTOMATED NEUTROPHIL # 6.5 TH/MM3 (1.8-7.7); BASOPHIL % 0.5 % (0.0-2.0); EOSINOPHIL % 0.2 % (0.0-4.0); HEMOGLOBIN 12.5 GM/DL (11.6-15.3); LYMPH % 8.6 % (9.0-44.0); LYMPHOCYTE # 0.6 TH/MM3 (1.0-4.8); MEAN CELL VOLUME 84.5 FL (80.0-100.0); MEAN PLATELET VOLUME 8.1 FL (7.0-11.0); MONO % 3.3 % (0.0-8.0); MONOCYTE # 0.2 TH/MM3 (0-0.9); NEUT % 87.4 % (16.0-70.0); PLATELET COUNT 350 TH/MM3 (150-450); RED BLOOD COUNT 4.62 MIL/MM3 (4.00-5.30); RED CELL DISTRIBUTION WIDTH 13.1 % (11.6-17.2); WHITE BLOOD COUNT 7.5 TH/MM3 (4.0-11.0)
[2017-09-08 16:10] LABS: BICARBONATE 31.2 MEQ/L (21.0-32.0); CALCIUM 9.9 MG/DL (8.5-10.1); CREATININE 1.18 MG/DL (0.50-1.00)
[2017-09-08] MEDS ORDERED: MORP1TAB24 PO (17:15)
--- NOTE | 2017-09-08 17:17 | PD ---
HPI Chief Complaint: Hypertension Time Seen by Provider: 17:16 Travel History International Travel<30 days: No Contact w/Intl Traveler<30days: No Traveled to known affect area: No History of Present Illness HPI The patient is 52 years old. She complains of high blood pressure. She also notes nausea and vomiting for the past couple days. She notes taking ibuprofen for the past 3 days. 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 She has herniated disc disease at multiple levels and takes morphine on a chronic basis for that pain. She was able to fill her morphine prescription and start taking it again however reports vomiting again today. She describes epigastric discomfort and wonders if she might need to take a antacid medication. No chest pain or shortness of breath. Patient reports attempting to ingest the oral antihypertensives however due to vomiting was unable to keep them down. PFSH Past Medical History Hx Anticoagulant Therapy: No Arthritis: Yes Asthma: Yes Autoimmune Disease: No Anxiety: No Depression: No Cancer: No Cardiovascular Problems: Yes High Cholesterol: Yes Chest Pain: Yes Cerebrovascular Accident: Yes Diabetes: Yes Patient Takes Glucophage: Yes Diminished Hearing: No Endocrine: No Gastrointestinal Disorders: Yes (laxatives) GERD: Yes Glaucoma: Yes Genitourinary: No Herniated Disk: Yes (TWO LOWER BACK, ONE IN NECK) Hypertension: Yes Immune Disorder: No Medical other: Yes (ADRENAL TUMOR) Musculoskeletal: Yes Neurologic: Yes Psychiatric: No Reproductive: Yes Respiratory: Yes Immunizations Current: Yes Migraines: Yes Sleep Apnea: Yes Thyroid Disease: No Menopausal: Yes : 3 Para: 2 Miscarriage: 1 Ovarian Cysts: Yes Dilation and Curettage (D&C): Yes Past Surgical History Abdominal Surgery: Yes (csection x 2) Cardiac Surgery: No Section: Yes (X2) Gynecologic Surgery: Yes (C-sections, d&c) Neurologic Surgery: Yes (spinal tap) Thoracic Surgery: No Other Surgery: Yes (EGD, colonoscopy ) Social History Alcohol Use: No Tobacco Use: No Substance Use: No Allergies-Medications (Allergen,Severity, Reaction): Coded Allergies: labetalol (Unverified Allergy, Severe, BREATHING/THROAT SWELLS, 09/08/17) Reported Meds & Prescriptions Reported Meds & Active Scripts Active Robaxin (Methocarbamol) 500 Mg Tab 500 Mg PO BID Hydrochlorothiazide 25 Mg Tab 25 Mg PO DAILY 30 Days Amlodipine (Amlodipine Besylate) 10 Mg Tab 10 Mg PO DAILY Metformin (Metformin HCl) 500 Mg Tab 500 Mg PO BIDPC Gabapentin 800 Mg Tab 600 Mg PO TID Reported Toviaz ER (Fesoterodine Fumarate) 4 mg Dio 4 Mg PO DAILY Atorvastatin (Atorvastatin Calcium) 40 Mg Tab 40 Mg PO HS Morphine ER (Morphine Sulfate) 15 Mg Tab 15 Mg PO BID Review of Systems Except as stated in HPI: all other systems reviewed are Neg General / Constitutional: No: Fever Physical Exam Narrative GENERAL: 52-year-old female well-nourished well-developed no acute distress Vital Signs Date Time Temp Pulse Resp B/P (MAP) Pulse Ox O2 Delivery O2 Flow Rate FiO2 09/08/17 17:37 65 16 185/95 (125) 09/08/17 13:58 98.6 82 16 195/105 (135) 96 SKIN: Warm and dry. HEAD: Atraumatic. Normocephalic. EYES: Pupils equal and round. No scleral icterus. No injection or drainage. ENT: No nasal bleeding or discharge. Mucous membranes pink and moist. NECK: Trachea midline. No JVD. CARDIOVASCULAR: Regular rate and rhythm. RESPIRATORY: No accessory muscle use. Clear to auscultation. Breath sounds equal bilaterally. GASTROINTESTINAL: Abdomen soft, non-tender, nondistended. Hepatic and splenic margins not palpable. MUSCULOSKELETAL: Extremities without clubbing, cyanosis, or edema. No obvious deformities. NEUROLOGICAL: Awake and alert. No obvious cranial nerve deficits. Motor grossly within normal limits. Five out of 5 muscle strength in the arms and legs. Normal speech. PSYCHIATRIC: Appropriate mood and affect; insight and judgment normal. Data Data Last Documented VS Vital Signs Date Time Temp Pulse Resp B/P (MAP) Pulse Ox O2 Delivery O2 Flow Rate FiO2 09/08/17 17:37 65 16 185/95 (125) 09/08/17 13:58 98.6 96 Orders Orders Complete Blood Count With Diff (09/08/17 14:04) Basic Metabolic Panel (Bmp) (09/08/17 14:04) Clonidine (Catapres) (09/08/17 17:30) Ondansetron Odt (Zofran Odt) (09/08/17 17:30) Al-Mag Hy-Si 40-40-4 Mg/Ml Liq (Mag-Al P (09/08/17 17:30) Lidocaine 2% Viscous (Xylocaine 2% Visco (09/08/17 17:30) Labs Laboratory Tests Test 09/08/17 14:15 White Blood Count 7.5 TH/MM3 Red Blood Count 4.62 MIL/MM3 Hemoglobin 12.5 GM/DL Hematocrit 39.0 % Mean Corpuscular Volume 84.5 FL Mean Corpuscular Hemoglobin 27.0 PG Mean Corpuscular Hemoglobin Concent 32.0 % Red Cell Distribution Width 13.1 % Platelet Count 350 TH/MM3 Mean Platelet Volume 8.1 FL Neutrophils (%) (Auto) 87.4 % Lymphocytes (%) (Auto) 8.6 % Monocytes (%) (Auto) 3.3 % Eosinophils (%) (Auto) 0.2 % Basophils (%) (Auto) 0.5 % Neutrophils # (Auto) 6.5 TH/MM3 Lymphocytes # (Auto) 0.6 TH/MM3 Monocytes # (Auto) 0.2 TH/MM3 Eosinophils # (Auto) 0.0 TH/MM3 Basophils # (Auto) 0.0 TH/MM3 CBC Comment DIFF FINAL Differential Comment Blood Urea Nitrogen 14 MG/DL Creatinine 1.18 MG/DL Random Glucose 133 MG/DL Calcium Level 9.9 MG/DL Sodium Level 137 MEQ/L Potassium Level 3.5 MEQ/L Chloride Level 97 MEQ/L Carbon Dioxide Level 31.2 MEQ/L Anion Gap 9 MEQ/L Estimat Glomerular Filtration Rate 58 ML/MIN MDM Medical Decision Making Medical Screen Exam Complete: Yes Emergency Medical Condition: Yes Medical Record Reviewed: Yes Differential Diagnosis Constipation, Gastritis, Acute Cholecystitis, Biliary Colic, Pancreatitis, SANTIZO , Hepatitis, Bowel Obstruction, Cystitis, Mesenteric Ischemia, AAA, Appendicitis , Renal Stone/Hydronephrosis, GERD, perforated viscous Narrative Course CBC & BMP Diagram 09/08/17 14:15 Calcium Level 9.9 Stable mild renal insufficiency is noted. The patient's blood pressure is at the acceptable range 185/95 Omeprazole prescribed the patient's behest. It seems most probable that the opioid withdrawal was associated with nausea and now she has her morphine should be able to tolerate her daily antihypertensives. We will also add Zofran. Diagnosis Primary Impression: Nausea and vomiting Qualified Codes: R11.2 - Nausea with vomiting, unspecified Additional Impression: Hypertension Qualified Codes: I10 - Essential (primary) hypertension Referrals: Primary Care Physician call for appointment Med/Other Pt SpecificInfo: Prescription(s) given Scripts Omeprazole (Omeprazole) 10 Mg Cap 10 MG PO DAILY, #30 CAP 0 Refills Prov: Vj Rodriguez MD 09/08/17 Ondansetron Odt (Zofran Odt) 4 Mg Tab 4 MG SL Q8HR Y for Nausea/Vomiting, #10 TAB 0 Refills Prov: Vj Rodriguez MD 09/08/17 Disposition: 01 DISCHARGE HOME Condition: Stable Vj Rodriguez MD September 08, 2017 17:17
[2017-09-08] MEDS ORDERED: TOVI4TAB PO (17:18)
[2017-09-08] MEDS ORDERED: ATOR40TA16 PO (17:18)
[2017-09-08] MEDS ORDERED: ALUMINUM/MAGNESIUM/SIMETH 30 ML CUP PO ONE (17:30)
[2017-09-08] MEDS ORDERED: LIDOCAINE VISCOUS 2% SOLN 15 ML UDC PO ONE (17:30)
[2017-09-08] MEDS ORDERED: cloNIDine HCL 0.1 MG TAB PO ONE (17:30)
[2017-09-08] MEDS ORDERED: ONDANSETRON ODT 4 MG TAB PO ONE (17:30)
[2017-09-08 17:37] VITALS: BP 185/95; PULSE 65; RESP 16
[2017-09-08] MEDS ORDERED: ZOFR4TAB3 SL (17:44)
[2017-09-08] MEDS ORDERED: OMEP10CA PO (17:44)
== END 2017-09-08 17:54 | disposition home or self-care (01) ==
LOC: NEPD 13:13
DX: R11.2 Nausea with vomiting, unspecified (principal); I10 Essential (primary) hypertension; E78.00 Pure hypercholesterolemia, unspecified; E11.9 Type 2 diabetes mellitus without complications; Z79.84 Long term (current) use of oral hypoglycemic drugs
CPT/HCPCS: 80048; 85025; 99283